=== PATIENT | female | born 1960 | race Caucasian/White ===

== ENCOUNTER 2017-02-14 12:39 | Outpatient (CLI) | payer OTHER ==
--- NOTE | 2017-02-14 15:21 | MRI Report ---
EXAM: RIGHT KNEE MRI WITHOUT CONTRAST EXAM DATE: 02/14/2017 01:53 PM. CLINICAL HISTORY: Right knee pain. COMPARISON: None. TECHNIQUE: Multiplanar, multisequence T1-weighted and fluid-sensitive sequences of the knee without c ontrast. Other: None. FINDINGS: Bones: Mild tibiofemoral osteophytes are present. No fractures. Articular Cartilage: The articular cartilage demonstrates moderate surface irregularity and thinning. The same findings are seen in the medial trochlea. There are areas of full-thickness fissuring of th e lateral tibial plateau. The medial compartment articular cartilage is mildly thinned. Medial Meniscus: The medial meniscus is intact. Lateral Meniscus: The posterior horn of the lateral meniscus has a parrot-beak tear near the root (se niharika 601, images 18 through 21). Cruciate Ligaments: The anterior and posterior cruciate ligaments are intact. Collateral Ligaments: The medial collateral and lateral collateral ligamentous structures are intact. Tendons: The quadriceps, patellar, semimembranosus, and popliteus tendons are unremarkable. Musculature: No edema or fatty atrophy. Other: No effusion. No popliteal cyst. No loose bodies. The medial and lateral retinacula are intact . The subcutaneous tissues and fat pads are unremarkable. IMPRESSION: 1. Mild osteoarthritis. 2. Tear of the posterior horn of the lateral meniscus. [facility] MUSCULOSKELET[facility] RADIOLOGY SECTION Referring Provider Line: [phone] SITE ID: [id number]
== END 2017-02-14 12:40 | disposition home or self-care (01) ==
LOC: DI 12:39
PROVIDERS: ATTEND Nurse Practitioner Family
DX: M17.11 Unilateral primary osteoarthritis, right knee (principal); S83.281A Other tear of lateral meniscus, current injury, right knee, initial encounter

== ENCOUNTER 2017-09-09 09:41 | Outpatient (CLI) | payer OTHER ==
[2017-09-09 10:24] LABS: BILIRUBIN,URINE NEGATIVE (NEGATIVE)
[2017-09-09 10:25] LABS: UA w/ MICROSCOPIC CHARGE YES
[2017-09-09 10:47] LABS: UR CULTURE IF IND INDICATED; WBC,URINE 0-3 /HPF (0-5)
== END 2017-09-09 09:42 | disposition home or self-care (01) ==
LOC: LAB 09:41
PROVIDERS: ATTEND Surgery
DX: M54.9 Dorsalgia, unspecified (principal)
CPT/HCPCS: 81001; 81003; 87086

== ENCOUNTER 2018-02-01 09:42 | Emergency (ER) | payer OTHER ==
[2018-02-01 09:55] VITALS: BP 154/78
--- NOTE | 2018-02-01 11:20 | ED Physician Documentation ---
PD HPI GI BLEED - Stated complaint Stated Complaint: FEMALE - Chief complaint Chief Complaint: General - History obtained from History obtained from: Patient, Family - History of Present Illness Timing - onset: Today Timing - duration: Hours Timing - details: Abrupt onset, Still present Associated symptoms: BRBPR. No: Dizzy, Near syncope / syncope Contributing factors: No: Recent antibiotics, Alcohol use, Diabetes Similar symptoms before: Has not had sx before Recently seen: Clinic - Additional information Additional information: 57-year-old female who has been through menopause at age 52 has not had menstrual bleeding for several years. This morning she found that she had blood on the tissue paper after having a bowel movement and then subsequently went back into the bathroom and had just blood clots out. She felt that this came per rectum and she describes the clots is stringy and a small amount. She does have some soreness to her bottom but has had normal bowel movements daily. She describes having some general nausea for more than a year and she is in the process of having a workup done for that through the GI doctors at [facility]. She has an appointment for an upper endoscopy next week. Review of Systems Constitutional: denies: Fever Eyes: denies: Decreased vision Ears: denies: Ear pain Nose: denies: Congestion Respiratory: denies: Dyspnea, Cough GI: reports: Abdominal Pain, Nausea, Bloody / black stool. denies: Vomiting, Constipation, Diarrhea : denies: Dysuria, Frequency PD PAST MEDICAL HISTORY - Past Medical History Past Medical History: Yes Cardiovascular: None Respiratory: None Endocrine/Autoimmune: None GI: GERD, Hiatal hernia : Other HEENT: Other Psych: None Musculoskeletal: Other Derm: None - Past Surgical History Past Surgical History: Yes General: Cholecystectomy, Colonoscopy, EGD /[facility]: Tubal ligation, Breast reduction HEENT: Other - Present Medications Home Medications: Ambulatory Orders Medication Instructions Recorded Confirmed Sucralfate 40 mg PO BID 06/28/15 06/28/15 Albuterol Sulfate [Proventil Hfa 1 - 2 puffs IH Q4H PRN #1 11/24/15 Inhaler] hfa.aer.ad Estradiol [Estrace] 11/24/15 Pantoprazole [Protonix] 80 mg PO BID 11/24/15 11/24/15 guaiFENesin/CODEINE [Robitussin AC] 5 - 10 ml PO Q6H PRN #120 ml 11/24/15 - Allergies Allergies/Adverse Reactions: Allergies Allergy/AdvReac Type Severity Reaction Status Date / Time No Known Drug Allergies Allergy Verified 03/11/13 00:17 - Social History Does the pt smoke?: No Smoking Status: Never smoker Does the pt drink ETOH?: Yes Does the pt have substance abuse?: No - Immunizations Immunizations are current?: Yes - POLST Patient has POLST: No PD ED PE NORMAL - Vitals Vital signs reviewed: Yes (hypertensive) - General General: Alert and oriented X 3, No acute distress, Well developed/nourished - HEENT HEENT: Atraumatic, PERRL, EOMI - Respiratory Respiratory: No respiratory distress - Rectal Rectal: Other (head of strategy Una no external hemmorrhoids or inflamation. Blood is present in the vaginal area. The digital exam is without obvious internal hemmorhoid and the stool is brown and guiac negative. ) - Derm Derm: Normal color, Warm and dry, No rash - Extremities Extremities: No deformity, No edema - Neuro Neuro: No motor deficit, No sensory deficit Eye Opening: Spontaneous Motor: Obeys Commands Verbal: Oriented GCS Score: 15 - Psych Psych: Normal mood, Normal affect Results - Vitals Vitals: Vital Signs - 24 hr 02/01/18 09:48 Temperature 35.9 C L Heart Rate 78 Respiratory 16 Rate Blood Pressure 154/78 H O2 Saturation 100 Oxygen O2 Source Room air PD MEDICAL DECISION MAKING - ED course Complexity details: reviewed old records, considered differential, d/w patient ED course: 57-year-old postmenopausal woman appears to have vaginal bleeding and not rectal bleeding. She is instructed to follow-up with her [facility] doctor regarding postmenopausal bleeding. Departure - Departure Disposition: 01 Home, Self Care Clinical Impression: Post-menopausal bleeding Condition: Stable Instructions: ED Bleed Irregular Vaginal Follow-Up: NICK Villalta [Provider Group] Comments: The bleeding today appears to be coming from the vaginal area. This is postmenopausal bleeding and follow-up with your [facility] doctor is imperative.
== END 2018-02-01 11:29 | disposition home or self-care (01) ==
LOC: ED 09:42
DX: N95.0 Postmenopausal bleeding (principal)
CPT/HCPCS: 99282; 99283

== ENCOUNTER 2018-11-11 12:58 | Emergency (ER) | payer OTHER ==
[2018-11-11 13:03] VITALS: BP 141/90
--- NOTE | 2018-11-11 13:56 | ED Physician Documentation ---
History of Present Illness - Stated complaint Stated Complaint: FLU LIKE SX - Chief complaint Chief Complaint: General - History obtained from History obtained from: Patient - History of Present Illness Timing: Other (She has been sick for 7 days with green nasal drainage, sinus pressure and congestion, productive cough, body aches, and bilateral ear pain especially while flying. She had a flu shot last year. 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 HEENT: Other - Present Medications Home Medications: Ambulatory Orders Medication Instructions Recorded Confirmed Albuterol Sulf [Ventolin Hfa 1 - 2 puffs INH Q4HR PRN #1 inhaler 11/11/18 Inhaler] Amox/Clav 875/125 [Augmentin] 1 each PO Q12H #20 tablet 11/11/18 Benzonatate [Tessalon Perle] 100 - 200 mg PO TID PRN #30 capsule 11/11/18 Hydrocodone/Acetaminophen 1 - 2 each PO Q6H PRN #14 tablet 11/11/18 [Hydrocodon-Acetaminophen 5-325] Mupirocin 1 gm TP TID #2 oin.pf.halle 11/11/18 - Allergies Allergies/Adverse Reactions: Allergies Allergy/AdvReac Type Severity Reaction Status Date / Time No Known Drug Allergies Allergy Verified 11/11/18 13:03 - Social History Does the pt smoke?: No Smoking Status: Never smoker Does the pt drink ETOH?: Yes Does the pt have substance abuse?: No - Immunizations Immunizations are current?: Yes - POLST Patient has POLST: No PD ED PE NORMAL - Vitals Vital signs reviewed: Yes - General General: Alert and oriented X 3, No acute distress - HEENT HEENT: Other (Profuse green nasal drainage with bilateral maxillary sinus tenderness and perinasal impetigo bilaterally, TMs and oropharynx are normal.) - Neck Neck: Supple, no meningeal sign, No bony TTP - Cardiac Cardiac: RRR, No murmur - Respiratory Respiratory: No respiratory distress, Other (Mild diffuse rhonchi without wheezing or focal findings) - Abdomen Abdomen: Non tender - Derm Derm: No rash - Neuro Neuro: Alert and oriented X 3, Normal speech Results - Vitals Vitals: Vital Signs - 24 hr 11/11/18 13:01 Temperature 36.9 C Heart Rate 103 H Respiratory 18 Rate Blood Pressure 141/90 H O2 Saturation 100 Oxygen O2 Source Room air Departure - Departure Disposition: Home, Self Care Clinical Impression: Impetigo, Viral syndrome Sinusitis Qualifiers: Sinusitis location: maxillary Chronicity: acute Recurrence: non-recurrent Qualified Code(s): J01.00 - Acute maxillary sinusitis, unspecified Condition: Good Record reviewed to determine appropriate education?: Yes Instructions: ED Sinusitis Abx Tx Prescriptions: Albuterol Sulf [Ventolin Hfa Inhaler] 1 - 2 puffs INH Q4HR PRN #1 inhaler PRN Reason: Shortness Of Air/Wheezing Amox/Clav 875/125 [Augmentin] 1 each PO Q12H #20 tablet Benzonatate [Tessalon Perle] 100 - 200 mg PO TID PRN #30 capsule PRN Reason: Cough Hydrocodone/Acetaminophen [Hydrocodon-Acetaminophen 5-325] 1 - 2 each PO Q6H PRN #14 tablet PRN Reason: pain Mupirocin 1 gm TP TID #2 oin.pf.halle Comments: Recheck with your doctor early next week if not better. Return for new or worsening symptoms. Your blood pressure was elevated today on check into the emergency department. This does not mean that you have hypertension, it is a common phenomenon to come to the emergency department and have elevated blood pressure. I recommend that you see your primary care physician within the week to have it rechecked when you are feeling better. Forms: Activity restrictions
== END 2018-11-11 14:21 | disposition home or self-care (01) ==
LOC: ED 12:58
DX: B34.9 Viral infection, unspecified (principal); L01.00 Impetigo, unspecified; J01.00 Acute maxillary sinusitis, unspecified; R03.0 Elevated blood-pressure reading, without diagnosis of hypertension
CPT/HCPCS: 99283

== ENCOUNTER 2019-05-14 08:32 | Outpatient (CLI) | payer OTHER | END 2019-05-14 08:33 | disposition home or self-care (01) | LOC: DI 08:32 | PROVIDERS: ATTEND Physician Assistant | DX: R06.00 Dyspnea, unspecified (principal); I20.9 Angina pectoris, unspecified; R01.1 Cardiac murmur, unspecified; I07.1 Rheumatic tricuspid insufficiency | CPT/HCPCS: 93306 ==

== ENCOUNTER 2019-06-21 14:16 | Outpatient (CLI) | payer OTHER ==
[2019-06-22 16:50] VITALS: BP 141/87
--- NOTE | 2019-06-22 16:50 | SLEEP CARE CONSULTATION ---
Information from patient questionnaire entered by Maura Patel. I have reviewed and concur with the information entered by Maura Patel. This document represents the service I personally performed and the decisions made by me, Se Irby MD, [facility]. History of Present Illness Reason for Visit: New patient, Previously diagnosed sleep apnea, sleep apnea on CPAP therapy Chief Complaint: reports: Other (needs supplies) Usual bedtime: [id number] Time it takes to fall asleep: 30-45 minutes Snores at night: Yes Observed to quit breathing while asleep: Yes Sleeps alone due to snoring: No Number of times waking at night: 2-3 Reasons for waking at night: reports: Bathroom, Other (dry mouth) Toss, Turn, or Twitch while sleeping: Yes Recalls having dreams: Yes Usually gets out of bed at: 0500 Feels refreshed in the morning: Yes (sometimes) Morning headache: Yes Sleepy or fatigued during the day: Yes Ever fallen asleep while driving: No Takes day naps: Yes Dreams during day naps: No Prior sleep studies: Yes Year and Where: 2015 [facility] in [place] Additional HPI information: I had the pleasure of seeing Ms. Lion today regarding obstructive sleep apnea- hypopnea. As you know, she is a 58 year old lady who was diagnosed with the sleep-disordered breathing at [facility] in 2016. She recalls the sleep- disordered breathing to be severe. The report is not available. She was prescribed a CPAP device set at 8 cmH2O. She uses every night and all night. The compliance data show usage in 178 out of the past 180 nights, averaging 7.9 hours a night. The residual AHI is 1.7 and average air leak is 19 seconds. She wears a Respironics Wisp nasal mask. Her machine came from [facility] but she was transferred to [facility] who would not give her supplies because she was noncompliant. She finds the treatment beneficial. CPAP Compliance Data - Data Reviewed with Patient Average duration of nightly device use: 8h 1m Compliance rate %: 96.7 Current pressure setting (cmH2O): 8 Humidity settin Heated hose settin Subjective Initial [place] Sleepiness Scale score: 14 Past Medical History Past Medical History: reports: Claustrophobia, Arthritis, Anemia, Anxiety, Asthma, Depression, GERD Social History The patient's occupation is a [employer]. Patient is and lives in [place]. Have you smoked in the past 12 months: No Alcohol use: Yes Caffeine use: No Family History Family history of sleep disordered breathing: Yes Family Hx Sleep Apnea: Sibling: Snoring Allergies and Home Medications Drug allergies reviewed: Yes Home medication list reviewed: Yes Review of Systems Cardiovascular: reports: irregular heart rate or pulse, leg or foot swelling Respiratory: reports: chronic cough Gastrointestinal: reports: heartburn, nausea Neurological: reports: headaches Psychiatric: reports: anxiety, claustrophobia Ear/Nose/Throat: reports: dry mouth/throat, hoarseness, wisdom teeth removed Endocrine: reports: sluggishness, too hot or cold, excessive thirst Musculoskeletal: reports: joint pain, neck pain, back pain, muscle pain or cramping Immunologic: reports: sneezing, itching Physical Exam Vital signs obtained and entered by: Dr. Irby Blood Pressure: 141/87 Cuff size: regular Heart Rate: 62 O2 Saturation: 97 Neck circumference: 16.5 Mood/affect: normal HEENT: No craniofacial malformation Nostrils: patent to airflow Turbinates: normal Septum: midline Mouth and throat: narrow oropharynx Soft palate: long Hard palate: normal Uvula: normal Uvula visualization: 25% Mallampati Class III Tongue: normal in size Tonsils: small Chin and jaw: normal size and position Neck: normal w/o lymphadenopathy or thyromegaly Heart: regular rate and rhythm Lungs: clear bilaterally Abdomen: soft Extremities: 1+ edema Neurologic: intact Impression and Plan IMPRESSION: 1. Obstructive Sleep Apnea-Hypopnea Syndrome, as previously diagnosed. The severity is unknown as we do not have any of the records. The patient has had good treatment compliance. The current pressure setting appears effective and comfortable. The patient experiences improvement on the treatment. Narrow oropharynx and obesity are common predisposing factors for obstructive sleep apnea-hypopnea syndrome. Pathophysiology of sleep-disordered breathing was discussed. I will order her CPAP from [facility]. Plan: 1. Prescription made for CPAP supplies. 2. Obtain sleep study report to complete the prescription. 3. Try to lose weight. 4. Return for follow up in a year or earlier if there is any problem. I spent 100% of this 15 minute visit face to face with the patient with greater than 50% of this was spent time counseling the patient and coordination of care.
== END 2019-06-21 14:17 | disposition home or self-care (01) ==
LOC: SC 14:16
PROVIDERS: ATTEND Internal Medicine Pulmonary Disease
DX: G47.33 Obstructive sleep apnea (adult) (pediatric) (principal)
CPT/HCPCS: 99203; 99212

== ENCOUNTER 2019-09-02 08:40 | Outpatient (CLI) | payer OTHER ==
--- NOTE | 2019-09-03 09:56 | Nuclear Medicine Report ---
Reason: EPIGASTRIC PAIN Procedure Date: 09/02/2019 Accession Number: [id number] / [id number] Procedure: NM - Gastric Empty Small Bowel CPT Code: Final Report FULL RESULT: EXAM: GASTRIC EMPTYING STUDY EXAM DATE: 09/02/2019 01:45 PM. CLINICAL HISTORY: EPIGASTRIC PAIN. Frequent eructation. COMPARISON: None. TECHNIQUE: A standard meal was radiolabeled with 1 mCi Tc-99m sulfur colloid according to protocol. Following the oral administration of this meal, the patient underwent multiple static images over the abdomen from the anterior and posterior projections, at approximately 0, 1, 2, 3, 4 hours following the ingestion of the meal. Region of interest analysis was employed, and percent emptied/percent remaining of the meal was calculated using both the geometric mean and decay corrections. FINDINGS: Calculations demonstrate: TIME (hours) Percent remaining. Normal values for percent remaining. 1 hour: 9% (30-90%) 2 hours: <1% (0-60%) 3 hours: <1% (0-30%) 4 hours: <1% (0-10%) IMPRESSION: Findings suggest abnormally rapid gastric emptying. [facility]
== END 2019-09-02 08:41 | disposition home or self-care (01) ==
LOC: DI 08:40
PROVIDERS: ATTEND Physician Assistant
DX: R10.13 Epigastric pain (principal)
CPT/HCPCS: 78265

== ENCOUNTER 2019-09-20 02:57 | Emergency (ER) | payer OTHER ==
--- NOTE | 2019-09-20 03:01 | ED Physician Documentation ---
PD HPI NVD - Stated complaint Stated Complaint: N/V LOWER BACK PX - Chief complaint Chief Complaint: Back Pain - History obtained from History obtained from: Patient - History of Present Illness Timing - onset: How many days ago (2) Timing - duration: Days (2 days of some right flank pain, but then onset nausea and vomiting just the past several hours.) Timing - details: Gradual onset, Still present Associated symptoms: Abdominal pain (right lower abd to right flank). No: Fever, Near syncope / syncope, Loss of appetite, Dysuria, Hematuria Contributing factors: Sick contact (Daughter with flu-like nausea and vomiting recent, but not with abd pain.) Improved by: No: Vomiting Worsened by: Moving, Position. No: Breathing Similar symptoms before: Has not had sx before Recently seen: Not recently seen Review of Systems Constitutional: denies: Fever, Chills, Myalgias Nose: denies: Rhinorrhea / runny nose, Congestion Throat: denies: Sore throat Respiratory: denies: Cough GI: reports: Abdominal Pain, Nausea, Vomiting. 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: Tubal ligation, Breast reduction HEENT: Other - Present Medications Home Medications: Ambulatory Orders Medication Instructions Recorded Confirmed Hydrocodone/Acetaminophen [[place] 1 each PO Q6H PRN #15 tablet 09/20/19 5-325 Tablet] Multivitamin [Multivitamins] 1 cap PO DAILY 09/20/19 09/20/19 Ondansetron Odt [Zofran] 4 mg TL Q6H PRN #10 tablet 09/20/19 Promethazine Supp [Phenergan Supp] 25 mg W[place] Q6H PRN #5 supp 09/20/19 - Allergies Allergies/Adverse Reactions: Allergies Allergy/AdvReac Type Severity Reaction Status Date / Time Latex, Natural Rubber Allergy Rash Verified 09/20/19 03:03 - Social History Does the pt smoke?: No Smoking Status: Never smoker Does the pt drink ETOH?: Yes Does the pt have substance abuse?: No - Immunizations Immunizations are current?: No Immunizations: TDAP >10years/unknown - POLST Patient has POLST: No PD ED PE NORMAL - Vitals Vital signs reviewed: Yes - General General: Alert and oriented X 3, Well developed/nourished - HEENT HEENT: Pharynx benign. No: Moist mucous membranes - Neck Neck: Supple, no meningeal sign - Cardiac Cardiac: RRR, No murmur - Respiratory Respiratory: Clear bilaterally - Abdomen Abdomen: Normal bowel sounds, Soft, Non distended, No organomegaly, Other (tender lower right abd without percussion tenderness. Some right flank tenderness. ) - Back Back: No spinal TTP, Other (some right CVA tenderness. ) - Derm Derm: Normal color, Warm and dry - Neuro Neuro: Alert and oriented X 3, No motor deficit, Normal speech Results - Vitals Vitals: Vital Signs - 24 hr 09/20/19 09/20/19 09/20/19 03:00 04:10 04:34 Temperature 36.2 C L Heart Rate 81 67 68 Respiratory 18 16 14 Rate Blood Pressure 145/79 H 137/78 H 132/67 H O2 Saturation 95 98 88 L 09/20/19 09/20/19 09/20/19 04:38 05:05 05:21 Temperature Heart Rate 73 71 Respiratory 18 14 Rate Blood Pressure 107/87 H 122/60 O2 Saturation 98 97 98 09/20/19 09/20/19 06:07 06:35 Temperature 36.4 C L 36.2 C L Heart Rate 80 66 Respiratory 18 16 Rate Blood Pressure 125/61 125/61 O2 Saturation 97 97 Oxygen O2 Source Room air Oxygen Flow Rate 2 - Labs Labs: Laboratory Tests 09/20/19 09/20/19 09/20/19 03:14 03:45 03:45 WBC 11.1 H RBC 5.21 Hgb 13.9 Hct 42.2 MCV 81.0 MCH 26.7 L MCHC 32.9 RDW 12.9 Plt Count 312 MPV 9.2 Neut # (Auto) 9.5 H Lymph # (Auto) 0.7 L [place] # (Auto) 0.7 Eos # (Auto) 0.2 Baso # (Auto) 0.0 Absolute Nucleated RBC 0.00 Nucleated RBC % 0.0 Sodium 137 Potassium 4.2 Chloride 105 Carbon Dioxide 24 Anion Gap 8.0 BUN 19 Creatinine 0.7 Estimated GFR (MDRD) 86 L Glucose 116 H Calcium 8.4 L Total Bilirubin 0.7 AST 17 ALT 19 Alkaline Phosphatase 65 Total Protein 7.3 Albumin 3.6 Globulin 3.7 Albumin/Globulin Ratio 1.0 Lipase 37 Urine Color YELLOW Urine Clarity CLEAR Urine pH 6.0 Ur Specific [place] >=1.030 H Urine Protein 30 H Urine Glucose (UA) NEGATIVE Urine Ketones NEGATIVE Urine Occult Blood NEGATIVE Urine Nitrite NEGATIVE Urine Bilirubin NEGATIVE Urine Urobilinogen 0.2 (NORMAL) Ur Leukocyte Esterase SMALL H Urine RBC None Seen Urine WBC 4-5 Ur Squamous Epith Cells MOD Squamous H Amorphous Sediment Few Urine Bacteria Few Ur Microscopic Review INDICATED Urine Culture Comments NOT INDICATED - Rads (name of study) abd/pelvic CT without contrast Radiology: Prelim report reviewed (Normal appendix. No ureteral stones and normal-appearing kidney. Status post cholecystectomy. No acute intra-abdominal findings. Incidental small lingular nodule in the lung field with recommendation for repeat CT scan in several months. Patient is given a copy of the CT report.), See rad report PD MEDICAL DECISION MAKING - ED course Complexity details: reviewed results (No acute process seen on the CT scan nor the urine. This may be viral gastroenteritis. She has had IBS in the past and so could be having symptoms related to that.), re-evaluated patient (Had rather intractable nausea. Her pain was improved with IV medicines of Toradol and Dilaudid. However took several different antiemetics for the nausea to improve to where she was not vomiting and was able to take some ice chips. We discussed further time in the ER versus observation or heading home. At this point she opted for heading home with prescription meds.), considered differential (Consider UTI or kidney infection or kidney stone. Also consider appendicitis. Will get urine and CT scan.), d/w patient Departure - Departure Disposition: 01 Home, Self Care Clinical Impression: Right sided abdominal pain Nausea and vomiting Qualifiers: Vomiting type: unspecified Vomiting Intractability: intractable Qualified Code(s): R11.2 - Nausea with vomiting, unspecified Condition: Stable Record reviewed to determine appropriate education?: Yes Instructions: ED Abdominal Pain Unkn Cause, ED Nausea Vomiting Prescriptions: Hydrocodone/Acetaminophen [[place] 5-325 Tablet] 1 each PO Q6H PRN #15 tablet PRN Reason: Pain Ondansetron Odt [Zofran] 4 mg TL Q6H PRN #10 tablet PRN Reason: Nausea / Vomiting Promethazine Supp [Phenergan Supp] 25 mg W[place] Q6H PRN #5 supp PRN Reason: Nausea / Vomiting Comments: Small frequent fluids for hydration. [place] food initially and progress diet as able. Your urine did not show signs of infection. The CT scan did not show any obvious cause for the pain. There are no signs of kidney stones nor appendicitis nor other acute process. Presume therefore this may be a viral type illness or some irritable bowel. Ondansetron if needed for nausea. Promethazine suppository if still vomiting despite that. Use Tylenol or hydrocodone as needed for pain. If using this, also take a mild stool softener such as docusate to ensure it does not constipate you. Recheck if not improved well over the next 1 to 2 days. Return if worsening or worse despite medications. Discharge Date/Time: 09/20/19 06:36
[2019-09-20 03:18] LABS: BILIRUBIN,URINE NEGATIVE (NEGATIVE); GLUCOSE, URINE (UA) NEGATIVE (NEGATIVE); KETONES,URINE (UA) NEGATIVE (NEGATIVE); LEUKOCYTE ESTERASE, URINE SMALL (NEGATIVE); NITRITE,URINE NEGATIVE (NEGATIVE); OCCULT BLOOD,URINE NEGATIVE (NEGATIVE); PROTEIN,URINE 30 mg/dL (NEGATIVE); UROBILINOGEN,URINE 0.2 (NORMAL) E.U./dL (NORMAL)
[2019-09-20 03:31] LABS: AMORPHOUS SEDIMENT,UR Few /LPF; BACTERIA,URINE Few /HPF (None Seen); CLARITY,URINE CLEAR (CLEAR); RBC,URINE None Seen /HPF (0-5); SQUAMOUS EPITHELIAL CELL,UR MOD Squamous (<= Few)
[2019-09-20] MEDS ORDERED: HYDROmorphone 2 MG/ML VIAL IVP STA (03:34)
[2019-09-20] MEDS ORDERED: KETOROLAC 30 MG/ML VIAL IVP STA (03:34)
[2019-09-20] MEDS ORDERED: SODIUM CHLORIDE 0.9% 1,000 ML IV ONE (03:34)
[2019-09-20] MEDS ORDERED: ONDANSETRON 4 MG/2 ML VIAL IVP STA ×2 (03:34→06:10)
[2019-09-20 03:52] LABS: BASOPHILS % (AUTO) 0.3 %; EOSINOPHILS # (AUTO) 0.2 10^3/uL (0.0-0.7); EOSINOPHILS % (AUTO) 1.6 %; HGB - HEMOGLOBIN 13.9 g/dL (12.0-16.0); LYMPHOCYTES # (AUTO) 0.7 10^3/uL (1.5-3.5); LYMPHOCYTES % (AUTO) 6.1 %; MEAN CORPUSCULAR HEMOGLOBIN 26.7 pg (27.0-31.0); MEAN CORPUSCULAR HGB CONC 32.9 g/dL (32.0-36.0); MEAN PLATELET VOLUME 9.2 fL (7.9-10.8); MONOCYTES # (AUTO) 0.7 10^3/uL (0.0-1.0); MONOCYTES % (AUTO) 6.3 %; NEUTROPHILS # (AUTO) 9.5 10^3/uL (1.5-6.6); NEUTROPHILS % (AUTO) 85.2 %; PLT - PLATELET COUNT 312 10^3/uL (130-450); RED BLOOD COUNT 5.21 10^6/uL (4.20-5.40); RED CELL DISTRIBUTION WIDTH 12.9 % (12.0-15.0); WHITE BLOOD COUNT 11.1 x10^3/uL (4.8-10.8)
[2019-09-20 04:03] LABS: ALBUMIN 3.6 g/dL (3.2-5.5); BILIRUBIN,TOTAL 0.7 mg/dL (0.2-1.0); CALCIUM 8.4 mg/dL (8.5-10.3); CREATININE 0.7 mg/dL (0.4-1.0); TOTAL PROTEIN 7.3 g/dL (6.7-8.2)
[2019-09-20] MEDS ORDERED: HYDROmorphone 1 MG/ML CARPUJECT IVP STA (04:18)
[2019-09-20] MEDS ORDERED: ACETAMINOPHEN 1,000 MG/100 ML 100 ML IV STA (04:18)
[2019-09-20] MEDS ORDERED: PROCHLORPERAZINE 10 MG/2 ML VIAL IVP STA (04:18)
--- NOTE | 2019-09-20 04:33 | CT Report ---
Reason: right abd/flank pain Procedure Date: 09/20/2019 Accession Number: [id number] / [id number] Procedure: CT - Abdomen/Pelvis WO CPT Code: Final Report FULL RESULT: EXAM: CT ABDOMEN AND PELVIS (CT KUB) EXAM DATE: 09/20/2019 04:13 AM CLINICAL HISTORY: Right-sided abdominal and flank pain. Nausea and vomiting since last night. Flank pain for 2 days. COMPARISONS: ABDOMEN/PELVIS W/ 09/30/2015 10:44 PM. TECHNIQUE: Routine axial helical CT imaging was performed through the abdomen and pelvis without IV contrast. Reconstructions: Coronal and sagittal. In accordance with CT protocol optimization, one or more of the following dose reduction techniques were utilized for this exam: automated exposure control, adjustment of mA and/or KV based on patient size, or use of iterative reconstructive technique. FINDINGS: Right Kidney/Ureter: No stones. No hydronephrosis or hydroureter. No definite renal mass within the confines of a non-contrast exam. Left Kidney/Ureter: No stones. No hydronephrosis or hydroureter. No definite renal mass within the confines of a non-contrast exam. Abdominal Solid Organs: Prior cholecystectomy. Abdominal parenchymal organs are without significant abnormality within the confines of a noncontrast exam. Bowel: No evidence of bowel obstruction. Appendix: Normal. Lymph Nodes: No definite pathologic lymphadenopathy. Fluid: No significant ascites. Vasculature: Normal caliber aorta. Other: There is a tiny fat-containing umbilical hernia. Pelvis: No bladder stones. Visualized pelvic organs are without significant abnormality within the confines of a noncontrast exam. Bones: No definite suspicious bony lesions demonstrated. Multilevel degenerative change in the spine. There is moderate to severe multifactorial central canal stenosis at L4-L5. Lower Chest: There is a small inferior lingular opacity. There is a tiny 3 mm posteromedial right lower lobe nodule (image 24 series 3), stable from the prior study. No significant lung base consolidation or effusion. IMPRESSION: 1. No urinary tract stones or obstruction. 2. Appendix is normal. No bowel obstruction. 3. Prior cholecystectomy. 4. There is a new small nodular inferior lingular opacity. This is nonspecific. Follow-up noncontrast chest CT recommended in 1 month. RADIA
[2019-09-20] MEDS ORDERED: HALOPERIDOL 5 MG/ML VIAL IVP ONE (05:05)
[2019-09-20] MEDS ORDERED: ONDANSETRON ODT 4 MG Prepack 2 TL PRN (06:10)
[2019-09-20 06:12] VITALS: BP 125/61
== END 2019-09-20 06:36 | disposition home or self-care (01) ==
LOC: ED 02:57
DX: R10.31 Right lower quadrant pain (principal); R11.2 Nausea with vomiting, unspecified; K58.9 Irritable bowel syndrome, unspecified; R91.1 Solitary pulmonary nodule; Z90.49 Acquired absence of other specified parts of digestive tract
CPT/HCPCS: 36415; 74176; 80053; 81001; 83690; 85025; 96361; 96374; 96375; 96376; 99284; 99285; J0131; J1170; 81003; 87086

== ENCOUNTER 2020-05-24 08:57 | Outpatient (CLI) | payer OTHER ==
[2020-05-24 09:10] LABS: HGB - HEMOGLOBIN 13.1 g/dL (12.0-16.0); MEAN CORPUSCULAR HEMOGLOBIN 27.4 pg (27.0-31.0); MEAN CORPUSCULAR HGB CONC 33.3 g/dL (32.0-36.0); MEAN CORPUSCULAR VOLUME 82.2 fL (81.0-99.0); MEAN PLATELET VOLUME 8.8 fL (7.9-10.8); RED BLOOD COUNT 4.78 10^6/uL (4.20-5.40); RED CELL DISTRIBUTION WIDTH 12.8 % (12.0-15.0); WHITE BLOOD COUNT 7.4 x10^3/uL (4.8-10.8)
[2020-05-24 09:32] LABS: % IRON SATURATION 19 % (20-50); ALBUMIN 4.2 g/dL (3.2-5.5); ALBUMIN/GLOBULIN RATIO 1.1 (1.0-2.2); ALKALINE PHOSPHATASE 72 IU/L (42-121); ALT ALANINE AMINOTRANSFERASE 21 IU/L (10-60); AST ASPARTATE AMINOTRANSFERASE 19 IU/L (10-42); BILIRUBIN,TOTAL 0.6 mg/dL (0.2-1.0); BUN - BLOOD UREA NITROGEN 11 mg/dL (6-20); CALCIUM 8.9 mg/dL (8.5-10.3); CARBON DIOXIDE - CO2 28 mmol/L (21-32); CHLORIDE 104 mmol/L (101-111); CHOL/HDL RATIO 4.8 (<4.4); CHOLESTEROL 251 mg/dL; CREATININE 0.9 mg/dL (0.4-1.0); GLUCOSE 112 mg/dL (70-100); HDL CHOLESTEROL 52 mg/dL; IRON 65 ug/dL (28-170); LDL CHOLESTEROL,CALCULATED 170 mg/dL; LDL/HDL RATIO 3.3 (<4.4); SODIUM 138 mmol/L (135-145); TOTAL IRON BINDING CAPACITY 349 ug/dL (250-450); TRANSFERRIN 249 mg/dL (192-382); VLDL CHOLESTEROL 29 mg/dL
[2020-05-24 09:46] LABS: FERRITIN 95.2 ng/mL (11.0-306.8)
[2020-05-24 11:14] LABS: HEMOGLOBIN A1c% 6.3 % (4.27-6.07)
== END 2020-05-24 08:58 | disposition home or self-care (01) ==
LOC: LAB 08:57
PROVIDERS: ATTEND Obstetrics & Gynecology
DX: R53.83 Other fatigue (principal); R53.81 Other malaise; Z71.89 Other specified counseling; Z68.36 Body mass index [BMI] 36.0-36.9, adult; Z13.1 Encounter for screening for diabetes mellitus; Z13.21 Encounter for screening for nutritional disorder; Z13.220 Encounter for screening for lipoid disorders; Z86.2 Personal history of diseases of the blood and blood-forming organs and certain disorders involving the immune mechanism
CPT/HCPCS: 36415; 80053; 80061; 82306; 82728; 83036; 83540; 83721; 84443; 84466; 85027

== ENCOUNTER 2020-05-31 08:16 | Outpatient (CLI) | payer OTHER | END 2020-05-31 08:17 | disposition home or self-care (01) | LOC: LAB 08:16 | PROVIDERS: ATTEND Obstetrics & Gynecology | DX: Z13.1 Encounter for screening for diabetes mellitus (principal) | CPT/HCPCS: 36415; 82951 ==

== ENCOUNTER 2020-07-24 16:21 | Outpatient (CLI) | payer OTHER ==
--- NOTE | 2020-07-24 16:48 | SLEEP CARE CONSULTATION ---
Information from patient questionnaire entered by Grecia Cotto. I have reviewed and concur with the information entered by Grecia Cotto. This document represents the service I personally performed and the decisions made by me, Jaqueline Camacho ARNP. History of Present Illness Service Date and Time: 07/24/2020 1621 Previous diagnosis: Moderate, Obstructive Sleep Apnea-Hypopnea Syndrome AHI: 25.4 Reason for follow up: annual (Last seen 05/2019) Equipment type: CPAP Equipment obtained from: [employer] (getting supplies as needed) Mask style: Nasal Backup mask available: Yes (other mask) Last cushion change: 4 weeks Prior sleep studies: Yes Year and Where: 2015 [place] in [facility] additional information: JULIET LAGUNAS was diagnosed to have moderate, AHI 25.4, obstructive sleep apnea- hypopnea syndrome and returned today for CPAP therapy annual follow-up. Sleep Study - Results Prior sleep studies: Yes Year and Where: 2015 [place] in [place] CPAP Compliance Data - Data Reviewed with Patient Average duration of nightly device use: 8 hours 10 mins Compliance rate %: 95 Current pressure setting (cmH2O): 8 Humidity settin Heated hose settin Average residual AHI: 1.8 Average large leak: 1 minute 41 seconds Subjective Patient concerns: reports: air blowing in eyes (adjusts as needed, using night mask over eyes, using eye drops; both are helping), nasal congestion (sometimes, usually uses a nasal spray and is better rest of day), dry mouth, nose, throat (dry mouth). denies: aerophagia, mask discomfort, mask leak noise, condensation in mask/hose, epistaxis, other Observed to snore while using device: No Current pressure setting perceived as: comfortable On therapy, patient: reports: sleeping better, awakening more refreshed, being more awake and alert during the day, more rested overall. denies: drowsiness while driving Initial [place] Sleepiness Scale score: 14 ([place] 2019) Current [place] Sleepiness Scale score: 11 Allergies and Home Medications Drug allergies reviewed: Yes (latex, natural rubber) Home medication list reviewed: Yes (phentermine and bupropion) Review of Systems Review of systems same as previous: Yes (no changes) Physical Exam Heart Rate: 87 O2 Saturation: 97 Height: 5 ft 9 in Weight: 281 lb Body Mass Index: 41.5 BMI Classification: Morbidly Obese Impression and Plan 1. Obstructive Sleep Apnea-Hypopnea Syndrome, moderate, with excellent treatment compliance and good apnea control. On CPAP therapy, the patient has better sleep quality and is more rested overall. She has been having issue with dry mouth. Oral dryness can be reduced by adjusting humidity setting higher or heated hose lower or by adjusting both settings. Patient advised that chronic oral dryness can affect dental health and advised to follow up with dentist. In addition, there are oral dryness products that can be used to reduce dryness such as Biotene products, Dry mouth rinse and Xylomelts. Patient to discuss best option with dentist. Patient's apnea severity and rationale for treatment to reduce apnea, improve sleep quality and reduce cardiovascular and cerebrovascular events was reviewed. I also reviewed the benefit of consistent device use of CPAP for gastric reflux, and depression/anxiety. * Continue autoCPAP pressure at 8 cmH2O * Notify me if snoring with mask or feeling that the pressure is too much or too little * Attempt to lose weight * Call this office if any problems using CPAP * Return for follow up in 1 year, or sooner if concerns arise Counseling Topics: Spare mask, Weight loss health impact Visit Type: In Office Time Spent with Patient (minutes): 15 Provider Statement: I spent 100% of the Face to Face Visit with the patient with greater than 50% spent counseling the patient and coordination of care.
== END 2020-07-24 16:22 | disposition home or self-care (01) ==
LOC: SC 16:21
PROVIDERS: ATTEND Nurse Practitioner Family
DX: G47.33 Obstructive sleep apnea (adult) (pediatric) (principal); E66.01 Morbid (severe) obesity due to excess calories; Z68.41 Body mass index [BMI] 40.0-44.9, adult
CPT/HCPCS: 99212

== ENCOUNTER 2020-12-07 12:34 | Outpatient (CLI) | payer OTHER ==
--- NOTE | 2020-12-08 08:53 | Mammography Report ---
BILATERAL DIGITAL SCREENING MAMMOGRAM: 12/07/2020 CLINICAL: Routine screening. Comparison is made to exams dated: 11/22/2019 mammogram - [facility] and 11/20/2018 ma mmogram - [facility]. Other comparison mammograms: 10/01/2017, 08/28/2016 and 5. There are scattered fibroglandular elements in both breasts. No significant masses, calcifications, or other findings are seen in either breast. There has been no significant interval change. IMPRESSION: NEGATIVE There is no mammographic evidence of malignancy. A 1 year screening mammogram is recommended. This exam was interpreted at Station ID: [id number]. NOTE: For mammograms, a report in lay terms will be sent to the patient. Approximately 15% of breast malignancies will not be visualized mammographically. In the management of a palpable breast mass, a negative mammogram must not discourage biopsy of a clinically suspicious lesion. Electronically Signed By: Vasquez Barnett M.D. aty/:12/07/2020 15:41:47 ACR BI-RADS Category 1: Negative 3341F PARENCHYMAL PATTERN: (A) - The breast(s) demonstrate(s) scattered fibroglandular densities. BI-RADS CATEGORY: (1) - 1 RECOMMENDATION: (ANNUAL) - Recommend routine annual screening mammography. [id number] 1 year screening LATERALITY: (B)
== END 2020-12-07 12:35 | disposition home or self-care (01) ==
LOC: DI.N 12:34
DX: Z12.31 Encounter for screening mammogram for malignant neoplasm of breast (principal)

== ENCOUNTER 2021-10-25 09:03 | Outpatient (CLI) | payer OTHER ==
--- NOTE | 2021-10-25 13:02 | XRAY Report ---
PROCEDURE: Hip BILAT, x-ray INDICATIONS: BILAT HIP PAIN TECHNIQUE: 2 views of each hip was obtained COMPARISON: None FINDINGS: Bones: No fractures or dislocations. No suspicious bony lesions. The visualized pelvic ring appear s intact. Mild bilateral acetabular joint space narrowing Soft tissues: No suspicious soft tissue calcifications or masses. IMPRESSION: Mild bilateral osteoarthritis. No fracture or lytic lesion Reviewed by: Terry Neal MD on 10/25/2021 12:00 PM [facility] Approved by: Terry Neal MD on 10/25/2021 12:00 PM [facility] Station ID: [id number]
== END 2021-10-25 09:04 | disposition home or self-care (01) ==
LOC: DI.WOS 09:03
PROVIDERS: ATTEND Orthopaedic Surgery
DX: M16.0 Bilateral primary osteoarthritis of hip (principal)

== ENCOUNTER 2021-11-09 11:50 | Outpatient (CLI) | payer OTHER ==
[~2021-11-09 11:50] MED LIST: IOTHALAMATE MEGLUMINE 50 ML VIAL ONE; ROPIVACAINE 0.5% PF 30 ML VIAL ONE; TRIAMCINOLONE 40 MG/ML VIAL ONE; lidocaine 1% 20 ML MDV ONE
[2021-11-09] MEDS ORDERED: ROPIVACAINE 0.5% PF 30 ML VIAL IU ONE (14:00)
[2021-11-09] MEDS ORDERED: IOTHALAMATE MEGLUMINE 50 ML VIAL IVP ONE (14:58)
[2021-11-09] MEDS ORDERED: lidocaine 1% 20 ML MDV SUBQ ONE (14:59)
[2021-11-09] MEDS ORDERED: TRIAMCINOLONE 40 MG/ML VIAL IM ONE (15:00)
--- NOTE | 2021-11-19 05:48 | XRAY Report ---
PROCEDURE: Inj/Aspiration Major Joint INDICATIONS: OSTEOARTHRITIS, HIP PAIN TECHNIQUE: PROCEDURE: Inj/Aspiration Major Joint INDICATIONS: OSTEOARTHRITIS, HIP PAIN CONTRAST: 5 mL FLUOROSCOPY DOSAGE: 96.9 mGy FLUORO TIME: 3 minutes TECHNIQUE: The indications, alternatives, benefits, risks, and complications of the procedure were explained to the patient. Written informed consent was obtained and placed in the chart. The patient was placed in an appropriate position on the fluoroscopy table, and a site was chosen for percutaneous access un disha fluoroscopic guidance. The site was prepped and draped in a sterile fashion. Local anesthetic w as administered using a 1% lidocaine solution. A hypodermic or spinal needle was then used to access the symptomatic joint. Intra-articular location of the needle tip was confirmed by injecting a smal l amount of contrast, followed by steroid administration. The needle was then withdrawn, and a del rosario ge applied to the puncture site. FINDINGS: Joint injected: Left hip Medications injected: 40 mg/mL Kenalog and 0.5% Ropivacaine mixture. Complications: None. IMPRESSION: Successful fluoroscopically guided administration of steroid and anaesthetic solution into the left h ip joint. COMPARISON: None. FINDINGS: Spot fluoroscopic view demonstrates contrast within the left hip joint. IMPRESSION: Successful intra-articular steroid injection into the left hip. Reviewed by: Hay Perales on 11/14/2021 8:52 AM [facility] Approved by: Hay Perales on 11/14/2021 8:52 AM PST Station ID: [id number]
== END 2021-11-09 11:51 | disposition home or self-care (01) ==
LOC: DI 11:50
PROVIDERS: ATTEND Orthopaedic Surgery
DX: M16.0 Bilateral primary osteoarthritis of hip (principal)
CPT/HCPCS: 20610; 77002; Q9961

== ENCOUNTER 2022-03-07 08:00 | Outpatient (CLI) | payer OTHER ==
--- NOTE | 2022-03-08 16:03 | XRAY Report ---
PROCEDURE: Lumbar Spine 2 View INDICATIONS: LOW BACK PAIN TECHNIQUE: 2 views of the lumbar spine were acquired. COMPARISON: None. FINDINGS: Bones: 5 ghd-lpu-lnqoste vertebrae are present. There is normal bony alignment. No vertebral body compression fractures. No suspicious bony lesions. There is moderate disc and foraminal narrowing a t L5-S1, mild at L4-5. Minimal nonbridging anterior osteophytes are present most notable at L3 and L4 . Soft tissues: Overlying bowel gas pattern is normal. No suspicious soft tissue calcifications. IMPRESSION: Degenerative changes most notable at L5-S1. Reviewed by: Sydnie Welch MD on 03/08/2022 4:02 PM PDT Approved by: Sydnie Welch MD on 03/08/2022 4:02 PM PDT Station ID: [id number]
== END 2022-03-07 23:59 | disposition home or self-care (01) ==
LOC: DI.N 08:00
PROVIDERS: ATTEND Family Medicine
DX: M47.816 Spondylosis without myelopathy or radiculopathy, lumbar region (principal); M48.061 Spinal stenosis, lumbar region without neurogenic claudication; M47.817 Spondylosis without myelopathy or radiculopathy, lumbosacral region; M48.07 Spinal stenosis, lumbosacral region

== ENCOUNTER 2022-04-02 08:00 | Outpatient (CLI) | payer OTHER ==
--- NOTE | 2022-04-02 16:34 | XRAY Report ---
PROCEDURE: Knee 3 View RT INDICATIONS: KNEE PX TECHNIQUE: 3 views of the right knee(s) were acquired. COMPARISON: None. FINDINGS: Mild to moderate right knee osteoarthritis with joint space narrowing and marginal osteophytosis, inv olving all three compartments. No suspicious lytic or blastic osseous lesion. No fracture or dislocat ion. Normal patellar position. No knee joint effusion. IMPRESSION: Mild to moderate tricompartmental osteoarthritis in the right knee. No acute finding. Reviewed by: Ethan Burciaga MD on 04/02/2022 4:33 PM PDT Approved by: Ethan Burciaga MD on 04/02/2022 4:33 PM PDT Station ID: [id number]
== END 2022-04-02 23:59 | disposition home or self-care (01) ==
LOC: DI.WOS 08:00
PROVIDERS: ATTEND Physician Assistant Medical
DX: M17.11 Unilateral primary osteoarthritis, right knee (principal)

== ENCOUNTER 2022-04-02 13:45 | Emergency (ER) | payer OTHER ==
--- NOTE | 2022-04-02 14:08 | ED Physician Documentation ---
PD HPI CHEST PAIN - Stated complaint Stated Complaint: HIGH BP - Chief complaint Chief Complaint: Cardiac - History obtained from History obtained from: Patient - Additional information Additional information: She is noticed her blood pressures been high for the last 3 weeks or so. Its been in the range of 180/100. She has some mild chest popping with it and some on and off headaches. She notes mild pedal edema. She does not have a personal history of hypertension previous to this and has never been treated for hypertension but it runs in her family. Review of Systems Constitutional: reports: Fatigue Cardiac: denies: Palpitations Respiratory: denies: Dyspnea, Cough GI: denies: Abdominal Pain, Abdominal Swelling PD PAST MEDICAL HISTORY - Past Medical History Cardiovascular: None Respiratory: None Neuro: None Endocrine/Autoimmune: None GI: GERD, Hiatal hernia GEOLOGY INSTRUCTOR: None : Other HEENT: None Psych: None Musculoskeletal: None, Other Derm: None - Past Surgical History Past Surgical History: Yes General: Cholecystectomy, Colonoscopy, EGD /GEOLOGY INSTRUCTOR: Tubal ligation, Breast reduction HEENT: Other - Present Medications Home Medications: Ambulatory Orders Medication Instructions Recorded Confirmed hydroCHLOROthiazide [Hydrodiuril] 25 mg PO DAILY #30 tablet 04/02/22 - Allergies Allergies/Adverse Reactions: Allergies Allergy/AdvReac Type Severity Reaction Status Date / Time Latex, Natural Rubber Allergy Rash Verified 04/02/22 13:55 - Social History Does the pt smoke?: No Smoking Status: Never smoker Does the pt drink ETOH?: Yes Does the pt have substance abuse?: No - Immunizations Immunizations are current?: No Immunizations: TDAP >10years/unknown - POLST Patient has POLST: No PD ED PE NORMAL - Vitals Vital signs reviewed: Yes - General General: Alert and oriented X 3, No acute distress - HEENT HEENT: PERRL, EOMI - Cardiac Cardiac: RRR, No murmur - Respiratory Respiratory: No respiratory distress, Clear bilaterally - Abdomen Abdomen: Non tender - Back Back: No CVA TTP, No spinal TTP - Derm Derm: Normal color, Warm and dry - Extremities Extremities: Other (Trace pitting pedal edema, symmetric) - Neuro Neuro: Alert and oriented X 3, Normal speech Results - Vitals Vitals: Vital Signs - 24 hr 04/02/22 04/02/22 13:56 14:29 Temperature 37.2 C Heart Rate 78 72 Respiratory 18 23 Rate Blood Pressure 180/98 H 167/102 H O2 Saturation 95 96 Oxygen O2 Source Room air - EKG (time done) 1401 Rate: Rate (enter#) (74) Rhythm: NSR [place]: Normal QRS: Low voltage (mild precordial) Ischemia: Normal ST segments - Labs Labs: Laboratory Tests 04/02/22 14:07 Sodium 138 Potassium 4.1 Chloride 102 Carbon Dioxide 28 Anion Gap 8.0 BUN 14 Creatinine 0.8 Estimated GFR (MDRD) 73 L Glucose 96 Calcium 9.4 PD MEDICAL DECISION MAKING - ED course ED course: 61-year-old has noted elevated blood pressures at home over the last few weeks. She is not on any antihypertensive agents. Normal renal function and unremarkable EKG here. No symptoms suggestive of endorgan damage. We will start hydrochlorothiazide pending follow-up. This was after discussion of side effects. Departure - Departure Disposition: Home, Self Care Clinical Impression: Hypertension Condition: Good Record reviewed to determine appropriate education?: Yes Instructions: ED Hypertension New Begin Tx Prescriptions: hydroCHLOROthiazide [Hydrodiuril] 25 mg PO DAILY #30 tablet Comments: You were seen today for elevated blood pressures, thankfully no sign of any kidney or heart damage or anything else serious other than the blood pressure. We are starting a diuretic known as hydrochlorothiazide. I sent this prescription electronically to the [facility] pharmacy here in [place]. You should still keep your appointment with the base in a couple of weeks, but if not better with blood pressures below 150 systolic over the next 5 to 7 days you can email me and we will add a second agent. Return for new or worsening symptoms. Discharge Date/Time: 04/02/22 14:37
[2022-04-02 14:22] LABS: CALCIUM 9.4 mg/dL (8.5-10.3); CREATININE 0.8 mg/dL (0.4-1.0); POTASSIUM 4.1 mmol/L (3.5-5.0)
[2022-04-02 14:32] VITALS: BP 167/102
--- NOTE | 2022-04-09 08:43 | ED Physician Documentation ---
ED Addendum - Addendum Addendum: 04/09/22 08:42 Received the following email from the pt: I have kept a diary of the last week the bottom number under 100 ,7 times range from lowest 79-99 top number range from 132-177 Today it is 163/107, so I thought I would contact you to make sure the medication is working. I escribed losartan 25mg po daily #30, NR for her. She has pcp f/u next week.
== END 2022-04-02 14:37 | disposition home or self-care (01) ==
LOC: ED 13:45
DX: I10 Essential (primary) hypertension (principal)
CPT/HCPCS: 36415; 80048; 93005; 99283

== ENCOUNTER 2022-09-11 14:42 | Outpatient (CLI) | payer OTHER ==
--- NOTE | 2022-09-11 16:16 | MRI Report ---
PROCEDURE: LUMBAR SPINE WO INDICATIONS: LUMBAR BACK PAIN TECHNIQUE: Noncontrast sagittal T1 spin echo and T2 fast echo, sagittal STIR, axial T1 and T2 fast spin echo thr ough the lumbar spine. In cases with scoliosis, additional coronal T2 fast spin echo may be performe d. COMPARISON: Plain films dated 03/07/2022 FINDINGS: Image quality: Excellent. Alignment and Curvature: 5 lumbar type vertebral bodies are present by plain film. There is loss of n ormal lumbar lordosis. 3 mm of retrolisthesis of L5 on S1. Bone Marrow: Marrow is of normal overall signal. No acute vertebral body compression fractures. Mi ld reactive signal throughout the endplates of the thoracolumbar spine. Spinal Cord: Conus medullaris terminates at the lower L1 level. Visualized cord demonstrates normal signal and size. Paraspinous Soft Tissues: No paravertebral masses. T12-L1: Mild disc height loss and desiccation. Mild diffuse disc bulge. Mild facet and ligament flav um hypertrophy. Mild lipomatosis. Mild canal stenosis. No foraminal stenosis. L1-L2: Mild disc height loss and desiccation. Mild diffuse disc bulge. Mild facet and ligament fla vum hypertrophy. Mild epidural lipomatosis. Mild canal stenosis. Mild bilateral foraminal stenosis. L2-L3: Mild disc height loss and desiccation. Mild diffuse disc bulge. Mild facet and ligament fla vum hypertrophy. Mild epidural lipomatosis. Mild canal stenosis. Mild bilateral foraminal stenosis. L3-L4: Mild disc desiccation and diffuse disc bulge. Mild facet and ligament flavum hypertrophy. Mi ld epidural lipomatosis. Mild canal stenosis. Mild bilateral foraminal stenosis. L4-L5: Mild disc desiccation and diffuse disc bulge. Mild facet and ligament flavum hypertrophy. Mi ld epidural lipomatosis. Moderate canal stenosis. Moderate subarticular foraminal stenosis bilaterall y. L5-S1: Mild disc height loss. Moderate disc desiccation. Mild diffuse disc bulge. Mild bilateral fa cet hypertrophy. Mild canal stenosis. Moderate subarticular foraminal stenosis bilaterally. IMPRESSION: 1. Multilevel degenerative disc and facet disease, in addition to epidural lipomatosis and ligamentum flavum hypertrophy. 2. Mild multilevel canal stenoses. 3. Multilevel foraminal stenoses, worst at L4-L5 and L5-S1 where there are moderate foraminal stenose s. Reviewed by: Toney Panchal MD on 09/11/2022 4:14 PM PST Approved by: Toney Panchal MD on 09/11/2022 4:14 PM PST Station ID: [id number]
== END 2022-09-11 14:43 | disposition home or self-care (01) ==
LOC: DI 14:42
PROVIDERS: ATTEND Orthopaedic Surgery
DX: M51.36 Other intervertebral disc degeneration, lumbar region (principal); M48.061 Spinal stenosis, lumbar region without neurogenic claudication; M51.37 Other intervertebral disc degeneration, lumbosacral region; M48.07 Spinal stenosis, lumbosacral region; M47.816 Spondylosis without myelopathy or radiculopathy, lumbar region; M47.817 Spondylosis without myelopathy or radiculopathy, lumbosacral region

== ENCOUNTER 2022-11-12 15:24 | Outpatient (CLI) | payer OTHER ==
[2022-11-12 16:02] VITALS: BP 114/72
--- NOTE | 2022-11-12 16:02 | SLEEP CARE CONSULTATION ---
Information from patient questionnaire entered by Lianna Moore. I have reviewed and concur with the information entered by Lianna Moore. This document represents the service I personally performed and the decisions made by me, Jaqueline Camacho ARNP. History of Present Illness Service Date and Time: 11/12/2022 1524 Previous diagnosis: Moderate, Obstructive Sleep Apnea-Hypopnea Syndrome AHI: 25.4 Reason for follow up: annual (LAST SEEN 07/2020) Equipment type: CPAP ([employer]ENTE Dreamstation) Equipment obtained from: [facility] (getting supplies as needed) Mask style: Nasal Backup mask available: Yes (old mask) Last cushion change: 3 weeks Prior sleep studies: Yes Year and Where: 2015 [place] in [facility] additional information: JULIET LAGUNAS was diagnosed to have moderate, AHI 25.4, obstructive sleep apnea- hypopnea syndrome and returned today for CPAP therapy annual follow-up. Sleep Study - Results Prior sleep studies: Yes Year and Where: 2015 [place] in [place] CPAP Compliance Data - Data Reviewed with Patient Average duration of nightly device use: 7 hours 36 minutes Compliance rate %: 89.4 (168/180 days used) Current pressure setting (cmH2O): 8 Average residual AHI: 2 Central apnea: 0.1 Obstructive apnea: 0.4 Hypopnea: 1.5 Subjective Missed days of use due to: reports: travel, other (babysitting grandkids and did not take it with her) Patient concerns: reports: other (headaches, occasionally). denies: aerophagia, mask discomfort, air blowing in eyes, mask leak noise, condensation in mask/hose, nasal congestion, dry mouth, nose, throat, epistaxis Observed to snore while using device: No Current pressure setting perceived as: comfortable On therapy, patient: reports: sleeping better, awakening more refreshed, being more awake and alert during the day, more rested overall. denies: drowsiness while driving Initial [place] Sleepiness Scale score: 14 (IN 2019) Current [place] Sleepiness Scale score: 7 (11/12/22) Allergies and Home Medications Drug allergies reviewed: Yes (latex, natural rubber) Home medication list reviewed: Yes (no changes) Review of Systems Review of systems same as previous: No (fall, had xray and waiting on results; possible enlarged heart) Physical Exam Vital signs obtained and entered by: LIANNA Kirkpatrick MA Blood Pressure: 114/72 (LEFT ARM) Cuff size: regular Heart Rate: 87 O2 Saturation: 98 Height: 5 ft 9 in Weight: 276 lb 9.6 oz Body Mass Index: 40.8 BMI Classification: Morbidly Obese Impression and Plan 1. Obstructive Sleep Apnea-Hypopnea Syndrome, moderate, with good treatment comp liance and good apnea control. On CPAP therapy, the patient has better sleep quality and is more rested overall. Patient has been doing well with her CPAP therapy. Her mask cushion fits well but she does have the headgear slipping off the back of her head. She would like to explore other options but does not want to try a full face mask. I will order a mask refitting for a nasal mask. Patient's apnea severity and rationale for treatment to reduce apnea, improve sleep quality and reduce cardiovascular and cerebrovascular events was reviewed. I also reviewed the benefit of consistent device use of CPAP for gastric reflux, depression and anxiety. 2. Obesity, unspecified. Currently patients BMI is 40.8. She has been limited in able to exercise by pain in her hip. She will get walking again once her pain is improved. She was advised to concentrate on a healthy diet and to limit empty calories. She voiced understanding. Obesity increases the risk of apnea, CPAP pressure requirements and overall health risks especially cardiovascular and diabetes. Thus patient is advised to lose weight. * Continue CPAP pressure at 8 cmH2O * Update supplies * Mask refitting for nasal mask * Notify me if snoring with mask or feeling that the pressure is too much or too little * Attempt to lose weight * Call this office if any problems using CPAP * Return for follow up in 1 year, or sooner if concerns arise Counseling Topics: Spare mask, Weight loss health impact Visit Type: In Office Time Spent with Patient (minutes): 21 Provider Statement: I spent 100% of the Face to Face Visit with the patient with greater than 50% spent counseling the patient and coordination of care.
== END 2022-11-12 15:25 | disposition home or self-care (01) ==
LOC: SC 15:24
PROVIDERS: ATTEND Nurse Practitioner Family
DX: G47.33 Obstructive sleep apnea (adult) (pediatric) (principal); E66.01 Morbid (severe) obesity due to excess calories; Z68.41 Body mass index [BMI] 40.0-44.9, adult
CPT/HCPCS: 99212; 99213

== ENCOUNTER 2022-11-15 07:00 | Outpatient (CLI) | payer OTHER ==
--- NOTE | 2022-11-15 19:01 | XRAY Report ---
PROCEDURE: Knee 3 View RT INDICATIONS: RIGHT KNEE SPRAIN TECHNIQUE: 3 views of the right knee(s) were acquired. COMPARISON: None. FINDINGS: Bones: No fractures or dislocations. No suspicious bony lesions. Mild medial lateral compartmental joint space narrowing with small marginal osteophytes are present. Soft tissues: No joint effusion. No suspicious soft tissue calcifications. IMPRESSION: Mild osteoarthritis Reviewed by: Terry Neal MD on 11/15/2022 6:00 PM [facility] Approved by: Terry Neal MD on 11/15/2022 6:00 PM [facility] Station ID: [id number]
== END 2022-11-15 23:59 | disposition home or self-care (01) ==
LOC: DI.S 07:00
PROVIDERS: ATTEND Registered Nurse
DX: M17.11 Unilateral primary osteoarthritis, right knee (principal)

== ENCOUNTER 2022-12-11 10:26 | Outpatient (CLI) | payer OTHER | END 2022-12-11 10:27 | disposition home or self-care (01) | LOC: DI 10:26 | PROVIDERS: ATTEND Family Medicine | DX: I51.7 Cardiomegaly (principal) | CPT/HCPCS: 93306 ==

== ENCOUNTER 2023-01-14 08:00 | Outpatient (CLI) | payer OTHER ==
--- NOTE | 2023-01-15 08:52 | XRAY Report ---
PROCEDURE: Hip 2 View LT INDICATIONS: LEFT HIP PAIN TECHNIQUE: 2 views of the hip were acquired. COMPARISON: None. FINDINGS: Bones: No fractures or dislocations. No suspicious bony lesions. Moderate degenerative joint dise ase in the left hip. There is an surgical in the superior acetabulum. There is mild degenerative join t disease in right hip and sacroiliac joints bilaterally. Degenerative changes noted in the lower lum bar spine. Soft tissues: No suspicious soft tissue calcifications or masses. IMPRESSION: 1. Moderate degenerative joint disease in left hip. 2. Ossicle in the superior acetabulum. There is clinical concern for labral tear, consider MRI hip ar throgram for follow-up. Reviewed by: Cara Kennedy MD on 01/15/2023 8:50 AM PDT Approved by: Cara Kennedy MD on 01/15/2023 8:50 AM PDT Station ID: [id number]
== END 2023-01-14 08:01 | disposition home or self-care (01) ==
LOC: DI.WOS 08:00
PROVIDERS: ATTEND Orthopaedic Surgery
DX: M70.62 Trochanteric bursitis, left hip (principal); M16.12 Unilateral primary osteoarthritis, left hip

== ENCOUNTER 2023-09-04 11:06 | Outpatient (CLI) | payer OTHER ==
--- NOTE | 2023-09-04 13:30 | XRAY Report ---
PROCEDURE: Hip 2 View LT INDICATIONS: LEFT HIP PAIN TECHNIQUE: AP view the pelvis and a frog-leg lateral view of the left hip were acquired. COMPARISON: 01/14/2023 FINDINGS: Bones: No fractures or dislocations. No suspicious bony lesions. Severe degenerative arthritis of the left hip with osteophytes off the acetabulum and severe inferior medial and superior lateral vernell nt space loss. Moderate right hip degenerative arthritis. Soft tissues: No suspicious soft tissue calcifications or masses. IMPRESSION: Severe left hip degenerative arthritis, moderate right hip degenerative arthritis. Reviewed by: Karri Mcintyre MD on 09/04/2023 1:29 PM PST Approved by: Karri Mcintyre MD on 09/04/2023 1:29 PM PST Station ID: [id number]
== END 2023-09-04 23:59 | disposition home or self-care (01) ==
LOC: DI.WOS 11:06
PROVIDERS: ATTEND Orthopaedic Surgery
DX: M16.0 Bilateral primary osteoarthritis of hip (principal)

== ENCOUNTER 2023-10-04 22:17 | Emergency (ER) | payer OTHER ==
--- NOTE | 2023-10-04 22:48 | ED Physician Documentation ---
PD HPI DYSPNEA - Stated complaint Stated Complaint: SOA,C+ - Chief complaint Chief Complaint: Resp - History obtained from History obtained from: Patient - Additional information Additional information: HPI from patient. 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 Symptoms have been ongoing for nearly a week. She says she tested positive for COVID 4 days ago. She presents at this time primarily for worsening sore throat and dyspnea. Denies chest pain. No h/o pulmonary diagnoses such as asthma, COPD. 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 : Other HEENT: None Psych: None Musculoskeletal: Rheumatoid arthritis, Other Derm: None - Past Surgical History Past Surgical History: Yes General: Cholecystectomy, Colonoscopy, EGD /ROUGH RICE GRADER: Tubal ligation, Breast reduction HEENT: Other - Present Medications Home Medications: Ambulatory Orders Medication Instructions Recorded Confirmed hydroCHLOROthiazide [Hydrodiuril] 25 mg PO DAILY #30 tablet 04/02/22 10/04/23 Losartan Potassium 25 mg PO DAILY #30 tablet 04/09/22 10/04/23 Acetaminophen [Tylenol] See Rx Instructions .ROUTE .COMPLEX 11/12/22 10/04/23 Cholecalciferol [Vitamin D3] See Rx Instructions .ROUTE .COMPLEX 11/12/22 10/04/23 Magnesium See Rx Instructions .ROUTE .COMPLEX 11/12/22 10/04/23 Methotrexate Inj [Methotrexate] 0.1 ml IM 10/04/23 Nabumetone 500 mg PO DAILY PRN 10/04/23 10/04/23 Albuterol Sulf [Ventolin Hfa 1 - 2 puffs INH Q4HR PRN #1 each 10/05/23 Inhaler] oxyCODONE [Roxicodone] 5 - 10 mg PO Q6H PRN #14 tablet 10/05/23 Benzonatate [Tessalon] 100 mg PO TID PRN #40 ea 10/08/23 - Allergies Allergies/Adverse Reactions: Allergies Allergy/AdvReac Type Severity Reaction Status Date / Time Latex, Natural Rubber Allergy Rash Verified 01/13/24 22:23 - Social History Does the pt smoke?: No Smoking Status: Never smoker Does the pt drink ETOH?: Yes Does the pt have substance abuse?: No - Immunizations Immunizations are current?: No Immunizations: TDAP >10years/unknown - POLST Patient has POLST: No PD ED PE NORMAL - Vitals Vital signs reviewed: Yes - General General: Alert and oriented X 3, No acute distress, Well developed/nourished, Other (speaks with hoarse, quiet voice) - Neck Neck: Supple, no meningeal sign - Cardiac Cardiac: RRR, No murmur - Respiratory Respiratory: No respiratory distress, Clear bilaterally - Extremities Extremities: No edema PD ED PE EXPANDED - HEENT HEENT: Pharyngeal erythema. No: Swollen tonsils, Tonsillar exudate Results - Vitals Vitals: Oxygen O2 Source Room air - Labs Labs: Microbiology 10/04/23 23:00 Group A Strep Throat Culture - Final Throat MIXED OROPHARYNGEAL AMENA PRESENT. NO BETA STREP PRESENT IN CULTURE. Laboratory Tests 10/04/23 10/04/23 23:00 23:00 Nasal Adenovirus (PCR) NOT DETECTED Nasal B. parapertussis DNA (PCR) NOT DETECTED Nasal Coronavir 229E PCR NOT DETECTED Nasal Coronavir HKU1 PCR NOT DETECTED Nasal Coronavir NL63 PCR NOT DETECTED Nasal Coronavir OC43 PCR NOT DETECTED Nasal Enterovir/Rhinovir PCR NOT DETECTED Nasal Influenza B PCR NOT DETECTED Nasal Influenza A PCR NOT DETECTED Nasal Parainfluen 1 PCR NOT DETECTED Nasal Parainfluen 2 PCR NOT DETECTED Nasal Parainfluen 3 PCR NOT DETECTED Nasal Parainfluen 4 PCR NOT DETECTED Nasal RSV (PCR) NOT DETECTED Nasal B.pertussis DNA PCR NOT DETECTED Nasal C.pneumoniae (PCR) NOT DETECTED Meet Human Metapneumo PCR NOT DETECTED Nasal M.pneumoniae (PCR) NOT DETECTED Nasal SARS-CoV-2 (PCR) NOT DETECTED Group A Strep Rapid Negative - Rads (name of study) chest xray Relevant Findings:: Prelim report reviewed, See rad report PD Medical Decision Making - ED course Complexity details: reviewed results, re-evaluated patient, considered differential, d/w patient ED course: Afebrile in ED with normal room air pulse ox. Lungs CTA bilaterally but consistently coughing with deep inspiration. She is given 5mg oxycodone and 10mg PO decadron for pharyngitis/sore throat. Initially duonegonzalo ordered to see if this would improve her dyspnea and coughing paroxysms, but this is cancelled so as to not increase infectious risk of COVID for ED staff. Instead she is given albuterol MDI and takes 2 puffs from this. She reports improvement with these measures. Subsequently, her respiratory PCR panel returns negative for the viruses on our panel including COVID, influenza, RSV. Rapid strep negative, as well, and unremarkable CXR. Despite the respiratory PCR panel result, H+P are still most consistent with viral bronchitis with possible bronchospasm (coughing paroxysms triggered with deep inspiration). Results d/w patient, return precautions reviewed. She is given a second dose of 5mg PO oxycodone for residual throat pain, and e-prescribed albuterol MDI and oxycodone. I am prescribing a short course of short-acting opioid pain medication for this patient. I have reviewed the patients CLINICAL APPEALS RN and no concerning findings were noted. I have discussed that the opioids are for short term therapy only, and will not be refilled from the ED. Departure - Departure Disposition: 01 Home, Self Care Clinical Impression: Bronchitis Pharyngitis Qualifiers: Pharyngitis/tonsillitis etiology: unspecified etiology Qualified Code(s): J02.9 - Acute pharyngitis, unspecified Condition: Good Instructions: ED Upper Resp Infec No Abx Tx, ED Pharyngitis Viral Report Pending Prescriptions: Albuterol Sulf [Ventolin Hfa Inhaler] 1 - 2 puffs INH Q4HR PRN #1 each PRN Reason: Shortness Of Air/Wheezing oxyCODONE [Roxicodone] 5 - 10 mg PO Q6H PRN #14 tablet PRN Reason: Pain >8 Benzonatate [Tessalon] 100 mg PO TID PRN #40 ea PRN Reason: Cough Comments: There were no abnormalities on the chest x-ray. The strep test was negative and the nasal swab tested negative for a number of viruses including COVID, influenza, and RSV. The exact cause of your symptoms is not apparent at this time, but viral pharyngitis/bronchitis is most likely. I have electronically submitted prescriptions for oxycodone (narcotic/opiate pain medication) and an albuterol inhaler to the [facility] pharmacy in [place]. Follow-up in 3 to 5 days with your primary care provider if your symptoms have not significantly improved. I am prescribing a short course of narcotic pain medication for you. These are potentially dangerous and addictive medications that should be used carefully. These medications may constipate you. Take an zydx-nql-etuzkqi stool softener (docusate) twice daily with plenty of water while taking these medications. If you go 24 hours without a bowel movement, take [id number] miralax, per package instructions. Do not drink or drive while taking these medications. If you received narcotic or sedating medications while in the emergency department, do not drive for 24 hours. Store this medication in a safe, secure place and out of reach of children. It is a violation of federal law to give or sell this medication to another person or to use in a manner other than prescribed. The ED will not refill narcotic prescriptions, including prescriptions lost or stolen. To dispose of unwanted medications: 1. [facility] [address] in [place] has a medication drop box. They accept prescription medications (in pill form) Friday through Friday 9:00 a.m. to 5:00 p.m. 2. The [facility] [employer] accepts prescription medications (in pill form only) for disposal year round. Call for more information. 3. Contact the [facility] for the next [facility] sponsored prescription drug collection event. , [phone], or [phone]; Forms: PCP List Discharge Date/Time: 10/05/23 01:18
[2023-10-04] MEDS: ALBUTEROL 1 PUFF INH STA (23:22)
[2023-10-04] MEDS: CHERRY SYRUP 10 ML UDC PO ONE (23:24)
[2023-10-04] MEDS: DEXAMETHASONE 10 MG/ML VIAL PO STA (23:24)
[2023-10-04] MEDS: oxyCODONE 5 MG TABLET PO STA (23:24)
[2023-10-04] MEDS: IPRATROPIUM/ALBUTEROL 3 ML NEB INH STA (23:28)
[2023-10-04 23:40] LABS: RAPID STREP SCREEN Negative (Negative)
--- NOTE | 2023-10-05 | XRAY Report ---
PROCEDURE: Chest 2V INDICATIONS: dyspnea TECHNIQUE: 2 views of the chest were acquired. COMPARISON: None. FINDINGS: Surgical changes and devices: None. Lungs and pleura: No pleural effusions or pneumothorax. Lungs are clear. Mediastinum: Mediastinal contours appear normal. Heart size is normal. Bones and chest wall: No suspicious bony lesions. Overlying soft tissues appear unremarkable. IMPRESSION: No acute cardiopulmonary process. Reviewed by: Nahun Funez MD on 10/04/2023 11:59 PM PST Approved by: Nahun Funez MD on 10/04/2023 11:59 PM PST Station ID: [id number]
[2023-10-05 00:34] LABS: B. PARAPERTUSSIS- RESP PCR PAN NOT DETECTED; B. PERTUSSIS- RESP PCR PANEL NOT DETECTED; C. PNEUMONIAE- RESP PCR PANEL NOT DETECTED; CORONAVIRUS 229E-RESP PCR NOT DETECTED; CORONAVIRUS HKU1-RESP PCR NOT DETECTED; CORONAVIRUS NL63-RESP PCR NOT DETECTED; CORONAVIRUS OC43-RESP PCR NOT DETECTED; HUMAN METAPNEUMOVIRUS NOT DETECTED; INFLUENZA A- RESP PCR PANEL NOT DETECTED; INFLUENZA B - RESP PCR PANEL NOT DETECTED; M. PNEUMONIAE- RESP PCR PANEL NOT DETECTED; PARAINFLUENZA VIRUS 1 NOT DETECTED; PARAINFLUENZA VIRUS 2 NOT DETECTED; PARAINFLUENZA VIRUS 3 NOT DETECTED; PARAINFLUENZA VIRUS 4 NOT DETECTED; RHINOVIRUS/ENTEROVIRUS NOT DETECTED; RSV- RESP PCR PANEL NOT DETECTED; SARS-CoV-2 -RESP PCR PANEL NOT DETECTED
[2023-10-05] MEDS: oxyCODONE 5 MG TABLET PO STA (01:07)
[2023-10-05 01:20] VITALS: BP 156/82; O2SAT 95
== END 2023-10-05 01:18 | disposition home or self-care (01) ==
LOC: ED 22:17
DX: J40 Bronchitis, not specified as acute or chronic (principal); J02.9 Acute pharyngitis, unspecified; I10 Essential (primary) hypertension; Z79.899 Other long term (current) drug therapy
CPT/HCPCS: 71046; 87070; 87430; 87633; 94640; 94664; 99284; A9270

== ENCOUNTER 2023-10-17 16:15 | Outpatient (CLI) | payer OTHER ==
--- NOTE | 2023-10-17 17:11 | XRAY Report ---
PROCEDURE: Hand 3+V BL INDICATIONS: PARATHESIAS TECHNIQUE: 3 views of the hand(s) acquired. COMPARISON: None. FINDINGS: Bones: Mild DJD of the right second and third distal interphalangeal joints with joint space narrowi ng, subchondral sclerosis and small osteophytes on the right. Mild DJD of the first interphalangeal j oint with joint space narrowing, subchondral sclerosis and small osteophytes on the right. No fractur es or dislocations. No suspicious bony lesions. Soft tissues: No suspicious soft tissue calcifications or masses. 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 Mild DJD of the first interphalangeal joint on the right. No osseous abnormality of the left hands seen. Reviewed by: Francisco Javier Gallardo MD on 10/17/2023 5:09 PM PST Approved by: Francisco Javier Gallardo MD on 10/17/2023 5:09 PM PST Station ID: [id number]
== END 2023-10-17 16:16 | disposition home or self-care (01) ==
LOC: DI 16:15
PROVIDERS: ATTEND Specialist/Technologist Athletic Trainer
DX: R20.2 Paresthesia of skin (principal); R29.898 Other symptoms and signs involving the musculoskeletal system; M18.11 Unilateral primary osteoarthritis of first carpometacarpal joint, right hand; M19.041 Primary osteoarthritis, right hand; Z83.79 Family history of other diseases of the digestive system; Z82.69 Family history of other diseases of the musculoskeletal system and connective tissue

== ENCOUNTER 2023-11-14 11:29 | Emergency (ER) | payer OTHER ==
--- NOTE | 2023-11-14 11:49 | ED Physician Documentation ---
PD HPI CHEST PAIN - Stated complaint Stated Complaint: CHEST/LEFT ARM PX,NAUSEA,ANXIETY - Chief complaint Chief Complaint: Cardiac - History obtained from History obtained from: Patient - History of Present Illness Timing - onset: Last night, Yesterday Timing - onset during: Light activity Timing - duration: Hours Timing - details: Gradual onset, Still present, Waxing and waning (pain in epigastric to substernal area since last night. has some increase with torso movement. abruptly/unexpectedly few days ago and the chest pain started that evening.) Quality: Tightness, Aching Location: Substernal, Right chest Radiation: No: Neck, Back Improved by: No: Rest Associated symptoms: Nausea, Other (trouble sleeping the past 4 nights and feeling stressed/anxious.). No: Shortness of air, Feeling faint / dizzy Similar symptoms before: Has not had sx before Recently seen: Not recently seen Review of Systems Constitutional: denies: Fever, Chills Nose: denies: Rhinorrhea / runny nose, Congestion Throat: denies: Sore throat Cardiac: reports: Chest pain / pressure. denies: Palpitations, Pedal edema, Calf pain Respiratory: denies: Dyspnea, Cough GI: reports: Nausea. denies: Abdominal Pain, Vomiting, Diarrhea Musculoskeletal: reports: Extremity swelling (mild edema by end of the day commonly. Not recently worse.) PD PAST MEDICAL HISTORY - Past Medical History Past Medical History: Yes Cardiovascular: Hypertension, Other (possible enlarged heart on CXR with ECHO to evaluation November 2022 without acute findings. EF 60%. No wall motion agnormalities. 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 : Other HEENT: None Psych: None Musculoskeletal: Rheumatoid arthritis, Other Derm: None - Past Surgical History Past Surgical History: Yes General: Cholecystectomy, Colonoscopy, EGD /PICKLING TANK OPERATOR: Tubal ligation, Breast reduction HEENT: Other - Present Medications Home Medications: Ambulatory Orders Medication Instructions Recorded Confirmed hydroCHLOROthiazide [Hydrodiuril] 25 mg PO DAILY #30 tablet 04/02/22 10/04/23 Losartan Potassium 25 mg PO DAILY #30 tablet 04/09/22 10/04/23 Acetaminophen [Tylenol] See Rx Instructions .ROUTE .COMPLEX 11/12/22 10/04/23 Cholecalciferol [Vitamin D3] See Rx Instructions .ROUTE .COMPLEX 11/12/22 10/04/23 Magnesium See Rx Instructions .ROUTE .COMPLEX 11/12/22 10/04/23 Methotrexate Inj [Methotrexate] 0.1 ml IM 10/04/23 Nabumetone 500 mg PO DAILY PRN 10/04/23 10/04/23 Albuterol Sulf [Ventolin Hfa 1 - 2 puffs INH Q4HR PRN #1 each 10/05/23 Inhaler] Benzonatate [Tessalon] 100 mg PO TID PRN #40 ea 10/08/23 Famotidine [Pepcid] 20 mg PO DAILY #20 tablet 11/14/23 LORazepam [Ativan] 1 mg PO Q8H PRN #20 tablet 11/14/23 - Allergies Allergies/Adverse Reactions: Allergies Allergy/AdvReac Type Severity Reaction Status Date / Time Latex, Natural Rubber Allergy Rash Verified 11/14/23 11:46 - Living Situation Living Situation: denies: With spouse/s.o. (had been living with spouse, but he 4 days ago. ) Living Arrangement: reports: At home - Social History Does the pt smoke?: No Smoking Status: Never smoker Does the pt drink ETOH?: Yes Does the pt have substance abuse?: No - Immunizations Immunizations are current?: No Immunizations: TDAP >10years/unknown - POLST Patient has POLST: No PD ED PE NORMAL - Vitals Vital signs reviewed: Yes - General General: Alert and oriented X 3, Well developed/nourished, Other (appears tearful and stresse/anxious. Pleasant and conversant though. ) - Cardiac Cardiac: RRR, No murmur, Other (chest wall tenderness right sternal border. Minimal tenderness epigastric without guarding. ) - Respiratory Respiratory: No respiratory distress, Clear bilaterally - Abdomen Abdomen: Soft, Non tender - Extremities Extremities: Normal ROM s pain, No edema, No calf tenderness / cord - Neuro Neuro: Alert and oriented X 3, No motor deficit, Normal speech Results - Vitals Vitals: Vital Signs - 24 hr 11/14/23 11/14/23 11:44 14:11 Temperature 36.5 C Heart Rate 92 65 Respiratory 18 16 Rate Blood Pressure 142/78 H 139/81 H O2 Saturation 98 97 Oxygen O2 Source Room air - EKG (time done) 11:50 EKG releavant findings:: EKG personally interpreted by author of this note. Relevant findings are: Rate: Rate (enter#) (81) Rhythm: NSR [place]: Normal Intervals: Normal MS QRS: Normal Ischemia: Normal ST segments. No: ST elevation c/w ischemia, ST depression Compare to prior EKG: Old EKG unavailable - Labs Labs: Laboratory Tests 11/14/23 11/14/23 11/14/23 11:56 11:56 11:56 WBC 8.4 RBC 4.34 Hgb 12.0 Hct 36.8 L MCV 84.8 MCH 27.6 MCHC 32.6 RDW 14.6 Plt Count 347 MPV 8.9 Neut # (Auto) 5.5 Lymph # (Auto) 2.0 [place] # (Auto) 0.7 Eos # (Auto) 0.1 Baso # (Auto) 0.1 Absolute Nucleated RBC 0.00 Nucleated RBC % 0.0 Sodium 137 Potassium 3.3 L Chloride 102 Carbon Dioxide 27 Anion Gap 8.0 BUN 8 Creatinine 0.9 Estimated GFR (MDRD) 64 L Glucose 121 H Calcium 9.2 Total Bilirubin 0.6 AST 15 ALT 15 Alkaline Phosphatase 69 Troponin I High Sens 2.8 B-Natriuretic Peptide 36 Total Protein 7.1 Albumin 4.0 Globulin 3.1 Albumin/Globulin Ratio 1.3 Lipase 34 - Rads (name of study) chest xray Relevant Findings:: Prelim report reviewed, EMP independent interpretation of test (no acute abnormalities. ) PD Medical Decision Making - ED course Complexity details: reviewed results, re-evaluated patient (much improved with gi cocktail. ), considered differential (chest pain since last evening with normal ECG, CXR and troponin. Has had some muscular component with chest wall tenderness, but also seems some GI as well. Given GI cocktail here with considerable improvment. Seems components of costochondral and espohageal. ), d/w patient Departure - Departure Disposition: 01 Home, Self Care Clinical Impression: Chest pain, Esophagitis, Situational anxiety, Grief reaction Condition: Stable Record reviewed to determine appropriate education?: Yes Follow-Up: LEONARD PEREZ DO [Primary Care Provider] - Prescriptions: LORazepam [Ativan] 1 mg PO Q8H PRN #20 tablet PRN Reason: Alcohol Withdrawal Famotidine [Pepcid] 20 mg PO DAILY #20 tablet Comments: Your EKG, chest x-ray, blood test including troponin and BNP are normal without any signs of heart or lung abnormalities. You did get some improvement with the antacids. I presume likely some esophagitis or irritation of the stomach. There is seems to be some element of chest wall tenderness as well. Tylenol 4 times daily to help with pain musculoskeletal. I would suggest acid reducing medicine such as famotidine twice daily for several days and then once daily for few weeks. Add antacids such as Maalox and Mylanta if needed. For anxiety/sleep, you can use lorazepam/Ativan 1 mg initially at night for sleep and see if that is effective. You can go up to 2 mg if needed. If needed during the day for anxiety, I would start with 0.5 mg initially and see how that does for you and go up to 1 mg if needed every 8 hours or so. This would be intended short-term. I sent your prescriptions to preferred pharmacy. Forms: PCP List Discharge Date/Time: 11/14/23 14:25
[2023-11-14 12:01] LABS: BASOPHILS # (AUTO) 0.1 10^3/uL (0.0-0.1); BASOPHILS % (AUTO) 0.7 %; EOSINOPHILS # (AUTO) 0.1 10^3/uL (0.0-0.7); EOSINOPHILS % (AUTO) 1.3 %; HCT - HEMATOCRIT 36.8 % (37.0-47.0); LYMPHOCYTES % (AUTO) 23.6 %; MEAN CORPUSCULAR HEMOGLOBIN 27.6 pg (27.0-31.0); MEAN CORPUSCULAR HGB CONC 32.6 g/dL (32.0-36.0); MEAN CORPUSCULAR VOLUME 84.8 fL (81.0-99.0); MEAN PLATELET VOLUME 8.9 fL (7.9-10.8); MONOCYTES # (AUTO) 0.7 10^3/uL (0.0-1.0); MONOCYTES % (AUTO) 8.1 %; NEUTROPHILS # (AUTO) 5.5 10^3/uL (1.5-6.6); NEUTROPHILS % (AUTO) 65.6 %; PLT - PLATELET COUNT 347 10^3/uL (130-450); RED BLOOD COUNT 4.34 10^6/uL (4.20-5.40); RED CELL DISTRIBUTION WIDTH 14.6 % (12.0-15.0); WHITE BLOOD COUNT 8.4 x10^3/uL (4.8-10.8)
[2023-11-14 12:16] LABS: ALBUMIN/GLOBULIN RATIO 1.3 (1.0-2.2); BILIRUBIN,TOTAL 0.6 mg/dL (0.2-1.0); CALCIUM 9.2 mg/dL (8.5-10.3); CREATININE 0.9 mg/dL (0.6-1.3); POTASSIUM 3.3 mmol/L (3.5-4.5); TOTAL PROTEIN 7.1 g/dL (6.4-8.9)
[2023-11-14 12:21] LABS: TROPONIN I HIGH SENSITIVITY 2.8 ng/L (2.3-14.8)
--- NOTE | 2023-11-14 12:32 | XRAY Report ---
PROCEDURE: Chest 1V INDICATIONS: Chest pain TECHNIQUE: One view of the chest was acquired. COMPARISON: Chest radiograph 10/04/2023. FINDINGS: Surgical changes and devices: None. Lungs and pleura: No pleural effusions or pneumothorax. Lungs are clear. Mediastinum: Mediastinal contours appear normal. Heart size is normal. Bones and chest wall: No suspicious bony lesions. Overlying soft tissues appear unremarkable. IMPRESSION: No acute cardiopulmonary process. Reviewed by: Sharon Berrios MD on 11/14/2023 12:30 PM PST Approved by: Sharon Berrios MD on 11/14/2023 12:30 PM PST Station ID: [id number]
[2023-11-14] MEDS: MAG HYDROX/AL HYDROX/SIMETH 30 ML UDC PO STA (12:44)
[2023-11-14] MEDS: KETOROLAC 15 MG/ML VIAL IM STA (12:44)
[2023-11-14] MEDS: LIDOCAINE VISCOUS 2% 15 ML ORAL SYRINGE MM STA (12:44)
[2023-11-14] MEDS: KETOROLAC 15 MG/ML VIAL IVP STA (12:57)
[2023-11-14] MEDS: LORazepam 0.5 MG TABLET PO STA (14:13)
[2023-11-14] MEDS: FAMOTIDINE 20 MG TABLET PO STA (14:13)
[2023-11-14 14:19] VITALS: BP 139/81; O2SAT 97
== END 2023-11-14 14:25 | disposition home or self-care (01) ==
LOC: ED 11:29
DX: F41.8 Other specified anxiety disorders (principal); F43.20 Adjustment disorder, unspecified; R07.89 Other chest pain; K20.90 Esophagitis, unspecified without bleeding; I10 Essential (primary) hypertension; J44.9 Chronic obstructive pulmonary disease, unspecified; Z79.899 Other long term (current) drug therapy; Z91.040 Latex allergy status
CPT/HCPCS: 36415; 71045; 80053; 83690; 83880; 84484; 85025; 93005; 96372; 99284; A9270

== ENCOUNTER 2023-12-12 16:43 | Outpatient (CLI) | payer OTHER ==
[2023-12-12 17:00] LABS: BASOPHILS # (AUTO) 0.1 10^3/uL (0.0-0.1); BASOPHILS % (AUTO) 0.9 %; EOSINOPHILS # (AUTO) 0.3 10^3/uL (0.0-0.7); EOSINOPHILS % (AUTO) 4.2 %; HCT - HEMATOCRIT 36.5 % (37.0-47.0); LYMPHOCYTES % (AUTO) 24.6 %; MEAN CORPUSCULAR HEMOGLOBIN 27.8 pg (27.0-31.0); MEAN CORPUSCULAR HGB CONC 32.9 g/dL (32.0-36.0); MEAN CORPUSCULAR VOLUME 84.5 fL (81.0-99.0); MEAN PLATELET VOLUME 9.2 fL (7.9-10.8); MONOCYTES # (AUTO) 0.7 10^3/uL (0.0-1.0); MONOCYTES % (AUTO) 8.2 %; NEUTROPHILS % (AUTO) 61.7 %; PLT - PLATELET COUNT 367 10^3/uL (130-450); RED BLOOD COUNT 4.32 10^6/uL (4.20-5.40); WHITE BLOOD COUNT 8.2 x10^3/uL (4.8-10.8)
[2023-12-12 17:29] LABS: THYROID STIMULATING HORMONE 2.38 uIU/mL (0.34-5.60)
== END 2023-12-12 16:44 | disposition home or self-care (01) ==
LOC: LAB 16:43
PROVIDERS: ATTEND Nurse Practitioner
DX: N95.0 Postmenopausal bleeding (principal)
CPT/HCPCS: 36415; 84443; 85025

== ENCOUNTER 2023-12-19 06:48 | Outpatient (CLI) | payer OTHER ==
--- NOTE | 2023-12-19 22:11 | Ultrasound Report ---
PROCEDURE: Pelvic w/Transvaginal INDICATIONS: POST MENOPAUSAL BLEEDING TECHNIQUE: Real-time scanning was performed of the pelvic organs, with image documentation. Additional endovagi nal scanning was necessary due to incomplete visualization of the adnexal and endometrial structures by transabdominal scanning. COMPARISON: None. FINDINGS: Uterus: Uterus is anteverted and normal in size at 6.2 x 3.8 x 3 cm. The myometrium is homogeneous. The endometrium measures 2 mm in combined thickness. No fibroids seen. Small nabothian cysts. Ovaries: The right ovary measures 1.6 x 1 x 0.9 cm, with a calculated ovarian volume of 1 cc. The l eft ovary measures 1.2 x 1.2 x 1 cm, with a calculated ovarian volume of 1 cc. The ovaries have a no rmal sonographic appearance. Less than 12 follicles can be seen in each ovary. No adnexal masses ar e seen. No cystic lesions measuring greater than 3 cm. Other: No pathologic free abdominal or pelvic fluid. IMPRESSION: 1. Endometrium measures 2 mm. Within normal limits. 2. No fibroids seen. 3. No significant ovarian cysts. Reviewed by: Puneet Little MD on 12/19/2023 10:09 PM PDT Approved by: Puneet Little MD on 12/19/2023 10:09 PM PDT Station ID: [id number]
== END 2023-12-19 06:49 | disposition home or self-care (01) ==
LOC: DI 06:48
PROVIDERS: ATTEND Nurse Practitioner
DX: N95.0 Postmenopausal bleeding (principal)

== ENCOUNTER 2023-12-19 11:21 | Outpatient (CLI) | payer OTHER ==
--- NOTE | 2023-12-22 09:06 | Mammography Report ---
BILATERAL DIGITAL SCREENING MAMMOGRAM 3D/2D: 12/19/2023 CLINICAL: Routine screening. Comparison is made to exams dated: 12/07/2020 mammogram, 11/22/2019 mammogram - [facility], and 11/20/2018 mammogram - [facility]. There are scattered areas of fibroglandular density in both breasts (category b / 25%-50% glandular t issue). There is a round low density focal asymmetry in the left breast at 6 o'clock middle depth. No other significant masses, calcifications, or other findings are seen in either breast. IMPRESSION: INCOMPLETE: NEEDS ADDITIONAL IMAGING EVALUATION The round low density focal asymmetry in the left breast resembles a skin lesion and is indeterminate . Additional views with possible ultrasound are recommended. Based on the Tyrer Cuzick model (a risk assessment model) the patient's lifetime risk is 6.4% and her 10 year risk is 2.7%. According to the ACR, ACS, and NCCN guidelines, an annual breast MRI exam danilo g with mammogram is recommended if the patient's lifetime risk is 20% or greater. This exam was interpreted at Station ID: [id number]. NOTE: For mammograms, a report in lay terms will be sent to the patient. Approximately 15% of breast malignancies will not be visualized mammographically. In the management of a palpable breast mass, a negative mammogram must not discourage biopsy of a clinically suspicious lesion. Electronically Signed By: Lexi odell/dangelo:12/19/2023 17:20:24 ACR BI-RADS Category 0: Incomplete 3340F PARENCHYMAL PATTERN: (A) - The breast(s) demonstrate(s) scattered fibroglandular densities. BI-RADS CATEGORY: (0) - 0 Mammo and [place] [id number] Immediate follow-up LATERALITY: (B)
== END 2023-12-19 11:22 | disposition home or self-care (01) ==
LOC: DI 11:21
DX: Z12.31 Encounter for screening mammogram for malignant neoplasm of breast (principal); R92.8 Other abnormal and inconclusive findings on diagnostic imaging of breast; R92.323 Mammographic fibroglandular density, bilateral breasts

== ENCOUNTER 2023-12-25 09:36 | Outpatient (CLI) | payer OTHER ==
[2023-12-25 10:26] LABS: CHOLESTEROL 256 mg/dL; HDL CHOLESTEROL 43 mg/dL; LDL CHOLESTEROL,CALCULATED 169 mg/dL; LDL/HDL RATIO 3.9 (<4.4); TRIGLYCERIDES 222 mg/dL (48-352); VLDL CHOLESTEROL 44 mg/dL
== END 2023-12-25 09:37 | disposition home or self-care (01) ==
LOC: LAB 09:36
PROVIDERS: ATTEND Internal Medicine Cardiovascular Disease
DX: I10 Essential (primary) hypertension (principal); R53.83 Other fatigue; Z82.49 Family history of ischemic heart disease and other diseases of the circulatory system
CPT/HCPCS: 36415; 80061; 81599; 83721

== ENCOUNTER 2023-12-31 16:39 | Outpatient (CLI) | payer SELFPAY ==
--- NOTE | 2023-12-31 19:32 | CT Report ---
PROCEDURE: CT heart coronary calcium scoring without contrast TECHNIQUE: MDCT non-contrast cardiac gated images were obtained from the james through the inferior margin of the heart. Calcium score was obtained by post-processing with external software. Automated exposure control was used to reduce patient radiation dose. INDICATION: CAD screening, low or intermediate risk COMPARISON: None. FINDINGS: Image quality: Excellent Agatston method: Total calcium score: 0 L main: 0 LAD: 0 LCX: 0 RCA: 0 Heart findings: Mitral annular calcifications: No significant calcifications. Aortic valve: No significant valvular calcifications. Chambers: No significant enlargement on this non-dynamic study. Pericardium: No effusion. Other findings (note the chest is incompletely imaged on this limited non-contrast study): Lungs and pleura: No pleural effusion. No actionable lung nodules. Mediastinum: No pathologic lymphadenopathy. Upper abdomen: Partially seen, unremarkable. Bones: No acute or suspicious abnormality. IMPRESSION: No coronary artery calcification can be seen. Incidentals: None significant. Coronary artery calcium scores have been identified as an independent risk factor for future acute co ronary syndromes and correlate with the quantity of coronary atherosclerotic plaque. However, they do not correlate directly with the degree of stenosis. A low score does not exclude a significant coron callie artery stenosis. Risk of future coronary events should be assessed with individual patient risk factors and medical hi story. Consider correlation with risk percentiles using the ARGUELLO (Multi-Ethnic Study of Atheroscleros is) calculator. CAC-DRS Categories: A0: 0, very low risk, consider repeat coronary calcium study every 3-7 years for surveillance. A1: 1-99, mildly increased risk, consider moderate-intensity statin A2: 100-299: moderately increased risk, consider moderate to high-intensity statin + ASA 81mg A3: >300: moderately to severely increased risk, consider high-intensity statin + ASA 81mg Reviewed by: Myron Ortiz MD on 12/31/2023 6:30 PM AKDT Approved by: Myron Ortiz MD on 12/31/2023 6:30 PM AKDT Station ID: [id number]
== END 2023-12-31 16:40 | disposition home or self-care (01) ==
LOC: DI 16:39
PROVIDERS: ATTEND Internal Medicine Cardiovascular Disease
DX: I10 Essential (primary) hypertension (principal); R53.83 Other fatigue; Z82.49 Family history of ischemic heart disease and other diseases of the circulatory system

== ENCOUNTER 2024-01-09 07:40 | Outpatient (CLI) | payer OTHER | END 2024-01-09 07:41 | disposition home or self-care (01) | LOC: DI 07:40 | PROVIDERS: ATTEND Internal Medicine Cardiovascular Disease | DX: R53.83 Other fatigue (principal); I10 Essential (primary) hypertension; Z82.49 Family history of ischemic heart disease and other diseases of the circulatory system; I34.0 Nonrheumatic mitral (valve) insufficiency | CPT/HCPCS: 93307 ==

== ENCOUNTER 2024-01-10 19:40 | Emergency (ER) | payer OTHER ==
[2024-01-10 20:10] VITALS: BP 143/84; O2SAT 95
--- NOTE | 2024-01-10 20:22 | ED Physician Documentation ---
History of Present Illness - Stated complaint Stated Complaint: RT LEG NUMB/PX/BACK PX - Chief complaint Chief Complaint: Neuro - Additonal information Additional information: 63-year-old female with history of hypertension, COPD, hiatal hernia, rheumatoid arthritis presents emergency department for multiple complaints. Patient said that she recently started Humira injection about 5 weeks ago she said a total of 2 they are each spaced out 14 days apart. She said after the first injection she started experience lower back pain, different aches and pains to both knees mostly to the posterior region and then new thigh pain. Patient reports over the last couple days she has noticed that her right thigh is more worse than her left thigh and that she has been having new bruising behind both knees. Patient says that she is a family history of DVTs and this is her main concern. She has no shortness of breath no chest pain she has had no recent international long travel or no recent periods where she has had prolonged decreased activity she says she actually has been starting to recently work out more recently than she normally does. No calf pain no hemoptysis. PD PAST MEDICAL HISTORY - Past Medical History Cardiovascular: Hypertension, Other Respiratory: COPD Neuro: None Endocrine/Autoimmune: None GI: GERD, Hiatal hernia CUSTOMIZER: None : Other HEENT: None Psych: None Musculoskeletal: Rheumatoid arthritis, Other Derm: None - Past Surgical History Past Surgical History: Yes General: Cholecystectomy, Colonoscopy, EGD /CUSTOMIZER: Tubal ligation, Breast reduction HEENT: Other - Present Medications Home Medications: Ambulatory Orders Medication Instructions Recorded Confirmed hydroCHLOROthiazide [Hydrodiuril] 25 mg PO DAILY #30 tablet 04/02/22 10/04/23 Losartan Potassium 25 mg PO DAILY #30 tablet 04/09/22 10/04/23 Acetaminophen [Tylenol] See Rx Instructions .ROUTE .COMPLEX 11/12/22 10/04/23 Cholecalciferol [Vitamin D3] See Rx Instructions .ROUTE .COMPLEX 11/12/22 10/04/23 Magnesium See Rx Instructions .ROUTE .COMPLEX 11/12/22 10/04/23 Methotrexate Inj [Methotrexate] 0.1 ml IM 10/04/23 Nabumetone 500 mg PO DAILY PRN 10/04/23 10/04/23 Albuterol Sulf [Ventolin Hfa 1 - 2 puffs INH Q4HR PRN #1 each 10/05/23 Inhaler] Benzonatate [Tessalon] 100 mg PO TID PRN #40 ea 10/08/23 Famotidine [Pepcid] 20 mg PO DAILY #20 tablet 11/14/23 LORazepam [Ativan] 1 mg PO Q8H PRN #20 tablet 11/14/23 Cyclobenzaprine [Flexeril] 10 mg PO TID PRN 6 Days #15 tablet 01/10/24 - Allergies Allergies/Adverse Reactions: Allergies Allergy/AdvReac Type Severity Reaction Status Date / Time Latex, Natural Rubber Allergy Rash Verified 01/10/24 19:57 - Social History Does the pt smoke?: No Smoking Status: Never smoker Does the pt drink ETOH?: Yes Does the pt have substance abuse?: No - Immunizations Immunizations are current?: No Immunizations: TDAP >10years/unknown - POLST Patient has POLST: No PD ED PE NORMAL - Vitals Vital signs reviewed: Yes - General General: Alert and oriented X 3, No acute distress, Well developed/nourished - Derm Derm: Normal color, Warm and dry, No rash - Extremities Extremities: No deformity, No tenderness to palpate, Normal ROM s pain, No edema, No calf tenderness / cord - Neuro Neuro: Alert and oriented X 3, motor transport inspector 2-12 intact, No motor deficit, No sensory deficit, Normal speech - Psych Psych: Normal mood, Normal affect Results - Vitals Vitals: Vital Signs - 24 hr 01/10/24 01/10/24 19:51 19:57 Temperature 36.1 C L 36.5 C Heart Rate 87 87 Respiratory 17 17 Rate Blood Pressure 143/84 H 143/84 H O2 Saturation 95 95 Oxygen O2 Source Room air - Labs Labs: Laboratory Tests 01/10/24 01/10/24 20:25 20:25 WBC 8.3 RBC 4.47 Hgb 11.9 L Hct 37.3 MCV 83.4 MCH 26.6 L MCHC 31.9 L RDW 13.3 Plt Count 359 MPV 9.2 Neut # (Auto) 4.3 Lymph # (Auto) 2.9 Marshall # (Auto) 0.8 Eos # (Auto) 0.3 Baso # (Auto) 0.1 Absolute Nucleated RBC 0.00 Nucleated RBC % 0.0 Sodium 138 Potassium 3.4 L Chloride 102 Carbon Dioxide 27 Anion Gap 9.0 BUN 13 Creatinine 0.8 Estimated GFR (MDRD) 73 L Glucose 119 H Calcium 9.5 Magnesium 1.9 Total Bilirubin 0.3 AST 15 ALT 15 Alkaline Phosphatase 81 Total Protein 7.0 Albumin 4.0 Globulin 3.0 Albumin/Globulin Ratio 1.3 Lipase 54 PD Medical Decision Making - ED course ED course: Labs are complete for further evaluation of what is causing patient to have these generalized bodyaches as well as what is causing what she describes as numbness to her right thigh. No leukocytosis no anemia no significant electrolyte abnormalities potassium is slightly suppressed at 3.4, GFR 73, no other acute abnormalities or findings.Wells score for myself for DVT is 0 point so I do not believe any further evaluation or investigation looking for DVT is warranted at this point in time. Patient was very reassured by this and is agreeable that this is most likely not a DVT given the multiple complaints that she is experiencing. Patient was at home and that she felt her right side was bigger than her left thigh I am not evaluating this she also reports that she was having some bruising to both posterior knees and I am also not seeing this. She was given muscle relaxers here in the emergency department and a prescription of muscle relaxers was sent to her preferred pharmacy and patient was told to follow-up with her tankman for further evaluation of the believe the symptoms she is experiencing is related to her Humira injections as the symptoms literally started right around the time after she got her first injection and have increased in severity after the second injection. She said that she is already send care message to her tankman for further evaluation and follow-up appointment. Patient was given strict ER return precautions all questions answered she is safe for discharge. Departure - Departure Disposition: 01 Home, Self Care Clinical Impression: Medication side effect Instructions: ED Muscle Aching Prescriptions: Cyclobenzaprine [Flexeril] 10 mg PO TID PRN 6 Days #15 tablet PRN Reason: Spasms Comments: Thank you for trusting us with your care. We have completed labs and I do not believe that you have any acute abnormalities or findings that would require hospitalization at this point in time. I have a very low suspicion that you are experiencing a DVT right now with the symptoms that you are reporting to be. I have started you on a medication called Flexeril also known as cyclobenzaprine is a muscle relaxer you can take up to 3 times a day for muscle spasms and pain. I would also consider adding on Tylenol up to 1000 mg every 8 hours do not exceed 4 g in a 24-hour period to also help with the muscle aches and pains that you are experiencing. Please follow-up with your tankman to see if this is a side effect of Humira or if they have any further recommendations or gu idance for you. Please come back to the emergency department if you are starting to develop any chest pain, shortness of breath, 1 calf that hurts more than the other with swelling, or any other concerning emergent symptoms. Wishing you speedy recovery. Forms: PCP List Discharge Date/Time: 01/10/24 21:24
[2024-01-10 20:32] LABS: BASOPHILS # (AUTO) 0.1 10^3/uL (0.0-0.1); BASOPHILS % (AUTO) 0.8 %; EOSINOPHILS # (AUTO) 0.3 10^3/uL (0.0-0.7); EOSINOPHILS % (AUTO) 3.4 %; HCT - HEMATOCRIT 37.3 % (37.0-47.0); HGB - HEMOGLOBIN 11.9 g/dL (12.0-16.0); LYMPHOCYTES # (AUTO) 2.9 10^3/uL (1.5-3.5); LYMPHOCYTES % (AUTO) 34.6 %; MEAN CORPUSCULAR HEMOGLOBIN 26.6 pg (27.0-31.0); MEAN CORPUSCULAR HGB CONC 31.9 g/dL (32.0-36.0); MEAN CORPUSCULAR VOLUME 83.4 fL (81.0-99.0); MEAN PLATELET VOLUME 9.2 fL (7.9-10.8); MONOCYTES # (AUTO) 0.8 10^3/uL (0.0-1.0); NEUTROPHILS # (AUTO) 4.3 10^3/uL (1.5-6.6); PLT - PLATELET COUNT 359 10^3/uL (130-450); RED BLOOD COUNT 4.47 10^6/uL (4.20-5.40); RED CELL DISTRIBUTION WIDTH 13.3 % (12.0-15.0); WHITE BLOOD COUNT 8.3 x10^3/uL (4.8-10.8)
[2024-01-10 20:44] LABS: ALBUMIN/GLOBULIN RATIO 1.3 (1.0-2.2); BILIRUBIN,TOTAL 0.3 mg/dL (0.2-1.0); CALCIUM 9.5 mg/dL (8.5-10.3); CREATININE 0.8 mg/dL (0.6-1.3); MAGNESIUM 1.9 mg/dL (1.7-2.3); POTASSIUM 3.4 mmol/L (3.5-4.5)
[2024-01-10] MEDS: CYCLOBENZAPRINE 10 MG TABLET PO STA (21:01)
== END 2024-01-10 21:24 | disposition home or self-care (01) ==
LOC: ED 19:40
DX: T88.7XXA Unspecified adverse effect of drug or medicament, initial encounter (principal); I10 Essential (primary) hypertension; M06.9 Rheumatoid arthritis, unspecified
CPT/HCPCS: 36415; 80053; 83690; 83735; 85025; 99283; 99284; A9270

== ENCOUNTER 2024-02-03 10:31 | Outpatient (CLI) | payer OTHER ==
--- NOTE | 2024-02-04 09:28 | Ultrasound Report ---
LIMITED ULTRASOUND OF LEFT BREAST: 02/03/2024 CLINICAL: Palpable left breast lump. Comparison is made to exams dated: 02/03/2024 mammogram, 12/19/2023 mammogram, 12/07/2020 mammogram, 11/22/2019 mamm[address] - [facility], and 11/20/2018 mammogram - [facility]. Color flow and real-time ultrasound of the left breast 5 o'clock region were performed. Rivero scale images of the real-time examination were reviewed. There is a 1.3 cm x 0.5 cm x 1.2 cm wider than tall oval cyst within the skin of the left breast at 5 o'clock 5 cm from the nipple. This oval cyst is hypoechoic with a well-defined boundary, internal e choes, and posterior acoustic enhancement. This correlates with mammography findings. Color flow im aging demonstrates that there is no vascularity present. IMPRESSION: BENIGN There is no sonographic evidence of malignancy. The 1.3 cm x 0.5 cm x 1.2 cm wider than tall oval cyst within the skin of the left breast is benign. Recommend clinical surveillance and follow up screening mammogram in 12 months. Findings and recommendations were conveyed to the patient during today's evaluation. This exam was interpreted at Station ID: [id number]. Electronically Signed By: Vasquez Barnett M.D. aty/:02/03/2024 12:23:31 Ultrasound BI-RADS: 2 Benign BI-RADS CATEGORY: (2) - 2 RECOMMENDATION: (ANNUAL) - Recommend routine annual screening mammography. [id number] 1 year screening LATERALITY: (B)
--- NOTE | 2024-02-04 09:28 | Mammography Report ---
UNILATERAL LEFT DIGITAL DIAGNOSTIC MAMMOGRAM 3D/2D WITH SPOT COMPRESSION: 02/03/2024 CLINICAL: Patient returns today to evaluate a focal asymmetry in the left breast. Comparison is made to exams dated: 12/19/2023 mammogram, 12/07/2020 mammogram, 11/22/2019 mammogram - [facility], and 11/20/2018 mammogram - [facility]. There are scattered areas of fibroglandular density in the left breast (category b / 25%-50% glandula r tissue). Redemonstration of previously described round low density focal asymmetry in the left breast at 5 o'c lock anterior depth. This is seen in additional views. No other significant masses or calcifications are seen in the breast. IMPRESSION: INCOMPLETE: NEEDS ADDITIONAL IMAGING EVALUATION The round low density focal asymmetry in the left breast resembles a skin lesion and is indeterminate . An ultrasound is recommended for further evaluation and is scheduled to immediately follow this ex amination. Based on the Tyrer Cuzick model (a risk assessment model) the patient's lifetime risk is 6.4% and her 10 year risk is 2.7%. According to the ACR, ACS, and NCCN guidelines, an annual breast MRI exam danilo g with mammogram is recommended if the patient's lifetime risk is 20% or greater. This exam was interpreted at Station ID: [id number]. NOTE: For mammograms, a report in lay terms will be sent to the patient. Approximately 15% of breast malignancies will not be visualized mammographically. In the management of a palpable breast mass, a negative mammogram must not discourage biopsy of a clinically suspicious lesion. Electronically Signed By: Vasquez Barnett M.D. aty/:02/03/2024 12:19:46 ACR BI-RADS Category 0: Incomplete 3340F PARENCHYMAL PATTERN: (A) - The breast(s) demonstrate(s) scattered fibroglandular densities. BI-RADS CATEGORY: (0) - 0 Ultrasound [id number] Immediate follow-up LATERALITY: (L)
== END 2024-02-03 10:32 | disposition home or self-care (01) ==
LOC: DI 10:31
PROVIDERS: ATTEND Family Medicine
DX: N60.02 Solitary cyst of left breast (principal); R92.322 Mammographic fibroglandular density, left breast

== ENCOUNTER 2024-02-17 07:27 | Outpatient (CLI) | payer OTHER ==
--- NOTE | 2024-02-17 08:19 | CARDIAC PROCEDURE NOTE ---
Stress Test Report Service Date: 02/17/24 Service Time: 08:00 Ordering Provider: Edmundo Telles MD Indication for Test: Cardiac risk stratification in patient with some family history of CAD and a recent coronary artery calcium score of zero. Significant Medical History: Janet is referred for a ETT today as part of a workup for occult coronary artery disease, in the setting of losing her 54-year-old a few months back due to presumed sudden cardiac . She has some personal ASCVD risk factors as elaborated below, though her functional status appears to be relatively stable, with primary concern for fatigue. Prior workup has included an echocardiogram performed in December of this year that showed normal right and left ventricular systolic function without evidence of LVH and with mild primary mitral regurgitation. She also had a coronary artery calcium study performed here on 12/31/2023 that showed a coronary calcium score of 0. Her only stated concern has been some difficulty in obtaining stable blood pressures. When her blood pressure is well-controlled she sees readings ranging around 130/75, however at times it is significantly higher than that, perhaps correlating with worsening of her rheumatoid arthritis pain. Notably, she takes her losartan and HCTZ at bedtime. 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 She feels that her stamina is intact and she does not experience chest discomfort. Cardiac Risk Factors: Positive for hypertension (treated for ~5 yrs with variable control), hyperlipidemia (untreated, with lipids in 01/13 that included TChol 256, LDLc 169, HDLc 43, TG 222) and modest family history of CAD in both paternal grandparents (she notes that she never knew her biological father and her mother was murdered at age 26, when she was very young); negative for diabetes and tobacco smoking history. Other risk-enhancing factors include history of rheumatoid arthritis (recently started on Humira) and treatment with BiPAP for about 4 years for obstructive sleep apnea. Type of Stress Test: Exercise Treadmill Test (ETT) Procedure: -Exercise Treadmill Test- After signing informed consent, the patient performed treadmill exercise using a Klever protocol. The patient exercised for exactly 6 minutes and achieved a peak heart rate of 171 (107 percent predicted maximum heart rate for age), and an estimated workload of 7.1 METS. The test was terminated due to fatigue/shortness of breath. Resting heart rate: 77 Peak heart rate: 171 Normal response to exercise. Resting BP: 141/86 Peak BP: 226/87 Elevated resting systolic BP with hypertensive BP response to exercise. Room air oxygen saturation during exercise ranged between 94-98%. Rhythm during exercise: Sinus rhythm throughout, without ectopy. Symptoms: She described mild leg and back discomfort, but no chest pressure/discomfort/pain. EKG at rest showed normal sinus rhythm with low precordial lead QRS voltages and left atrial abnormality; otherwise normal. EKG at peak stress showed no ischemia by EKG criteria. In Recovery HR rapidly/normally returned to resting level, with slower decline in BP (HR was 78, BP 154/90 at 7:00). No imaging was ordered with this stress test. IAntonio MD, was present throughout this treadmill stress study and supervised it in its entirety. Summary: 1) Exercise tolerance was reduced for age and sex, as evidenced by CARTER of 10%. 2) Normal resting EKG. 3) Adequate level of exercise was achieved on this treadmill stress test. 4) Abnormal hypertensive BP response to exercise. 5) No ischemic changes by EKG criteria were seen at peak stress. 6) No imaging was ordered with this test. Conclusions and Recommendations: 1) The patient exercised to a diagnostic workload, with a hypertensive BP response but with no symptoms or EKG evidence of inducible ischemia. 2) She was encouraged to remain on CPAP and to continue monitoring blood pressur e in hopes of seeing overall improved control. She has been taking hydrochlorothiazide and losartan at bedtime for no particular reason and we discussed that it may be more effective for daytime blood pressure control if taken in the morning. Therefore she will adjust the time of day to morning administration.
== END 2024-02-17 07:28 | disposition home or self-care (01) ==
LOC: DI 07:27
PROVIDERS: ATTEND Internal Medicine Cardiovascular Disease
DX: I10 Essential (primary) hypertension (principal); R53.83 Other fatigue; Z82.49 Family history of ischemic heart disease and other diseases of the circulatory system; E78.5 Hyperlipidemia, unspecified; M06.9 Rheumatoid arthritis, unspecified; G47.33 Obstructive sleep apnea (adult) (pediatric)
CPT/HCPCS: 93017

== ENCOUNTER 2024-03-11 15:27 | Outpatient (CLI) | payer OTHER ==
--- NOTE | 2024-03-11 16:30 | Sleep Patient Instructions ---
Sleep Center Visit Summary - Patient Visit Information Reason for Visit: Annual follow-up - Patient Instructions Additional Instructions: You will continue with CPAP therapy with pressure set at 8 cmH2O. A supply prescription will be updated with your DME. We encourage you to continue to try to lose weight. Please follow up with the sleep care office in 1 year. - Clinic Information Contact: [facility] [address] [place] [address] [email or web address] T: [phone]
--- NOTE | 2024-03-11 16:33 | SLEEP CARE CONSULTATION ---
Information from patient questionnaire entered by Lianna Moore. I have reviewed and concur with the information entered by Lianna Moore. This document represents the service I personally performed and the decisions made by me, Jaqueline Camacho ARNP. History of Present Illness Service Date and Time: 03/11/2024 1527 Previous diagnosis: Moderate, Obstructive Sleep Apnea-Hypopnea Syndrome AHI: 25.4 Reason for follow up: annual (LAST SEEN 10/2022) Equipment type: CPAP (VICENTE Dreamstation re-certified) Equipment obtained from: [employer] (getting supplies as needed) Mask style: Nasal Backup mask available: Yes Last cushion change: last week Prior sleep studies: Yes Year and Where: [facility] additional information: JULIET LAGUNAS was diagnosed to have moderate, AHI 25.4, obstructive sleep apnea- hypopnea syndrome and returned today for CPAP therapy annual follow-up. Sleep Study - Results Prior sleep studies: Yes Year and Where: 2015 [facility] CPAP Compliance Data - Data Reviewed with Patient Average duration of nightly device use: 7 HRS 27 MINS 7SECS Compliance rate %: 86.8 (03/10/23-03/08/24; 337/365 days used) Current pressure setting (cmH2O): 8 Average residual AHI: 3.7 Central apnea: 0.1 Obstructive apnea: 0.6 Hypopnea: 3 Average large leak: 8 mins 26 mins Subjective Missed days of use due to: reports: travel ( in hospital [place]) Patient concerns: reports: air blowing in eyes. denies: aerophagia, mask discomfort, mask leak noise, condensation in mask/hose, nasal congestion, dry mouth, nose, throat, epistaxis Observed to snore while using device: No Current pressure setting perceived as: comfortable On therapy, patient: reports: sleeping better, awakening more refreshed, being more awake and alert during the day, more rested overall. denies: drowsiness while driving Initial [place] Sleepiness Scale score: 14 ([place] 2019) Current [place] Sleepiness Scale score: 10 (03/11/24) Allergies and Home Medications Known drug allergies: Yes (as listed) Drug allergies reviewed: Yes Home medication list reviewed: Yes (Humira injections, 1 dose every 14 days) Allergy and home medication list: Allergies Latex, Natural Rubber Allergy (Verified 03/10/24 08:21) Rash Review of Systems Review of systems same as previous: No (LAMINECTOMY 04/2023) Physical Exam Vital signs obtained and entered by: LIANNA Kirkpatrick MA Blood Pressure: 150/79 (RIGHT ARM) Cuff size: long Heart Rate: 73 O2 Saturation: 96 Height: 5 ft 9 in Weight: 269 lb Weight change since last visit: 7 lb loss Body Mass Index: 39.7 BMI Classification: Obese Impression and Plan 1. Obstructive Sleep Apnea-Hypopnea Syndrome, moderte, with good treatment compliance and good apnea control. On CPAP therapy, the patient has better sleep quality and is more rested overall. Patient has significant improvement of their sleep apnea and is satisfied with current CPAP therapy. Patient denies problems with oral dryness, nasal congestion, epistaxis, skin irritation or aerophagia. Patient's apnea severity and rationale for treatment to reduce apnea, improve sleep quality and reduce cardiovascular and cerebrovascular events was reviewed. I also reviewed the benefit of consistent device use of CPAP for gastric reflux, depression/anxiety. 2. Obesity, unspecified. Currently patients BMI is 39.7. Obesity increases the risk of apnea, CPAP pressure requirements and overall health risks especially cardiovascular and diabetes. Thus patient is advised to lose weight. * Continue CPAP pressure at 8 cmH2O * Update supply prescription * Notify me if snoring with mask or feeling that the pressure is too much or too little * Attempt to lose weight * Call this office if any problems using CPAP * Return for follow up in 12 months, or sooner if concerns arise Counseling Topics: Spare mask, Weight loss health impact Prescriptions: Device supplies Follow up with Sleep Care in: 1 year Visit Type: In Office Time Spent with Patient (minutes): 20 Provider Statement: I spent 100% of the Face to Face Visit with the patient with greater than 50% spent counseling the patient and coordination of care.
[2024-03-11 16:37] VITALS: BP 150/79; O2SAT 96
== END 2024-03-11 15:28 | disposition home or self-care (01) ==
LOC: SC 15:27
PROVIDERS: ATTEND Nurse Practitioner Family
DX: G47.33 Obstructive sleep apnea (adult) (pediatric) (principal); E66.9 Obesity, unspecified; Z68.39 Body mass index [BMI] 39.0-39.9, adult
CPT/HCPCS: 99212; 99213

== ENCOUNTER 2024-04-10 10:45 | Outpatient (CLI) | payer OTHER ==
[2024-04-10 11:00] LABS: BASOPHILS # (AUTO) 0.1 10^3/uL (0.0-0.1); BASOPHILS % (AUTO) 1.2 %; EOSINOPHILS # (AUTO) 0.3 10^3/uL (0.0-0.7); EOSINOPHILS % (AUTO) 5.3 %; HCT - HEMATOCRIT 38.1 % (37.0-47.0); HGB - HEMOGLOBIN 12.6 g/dL (12.0-16.0); LYMPHOCYTES # (AUTO) 1.9 10^3/uL (1.5-3.5); LYMPHOCYTES % (AUTO) 31.3 %; MEAN CORPUSCULAR HEMOGLOBIN 26.4 pg (27.0-31.0); MEAN CORPUSCULAR HGB CONC 33.1 g/dL (32.0-36.0); MEAN CORPUSCULAR VOLUME 79.9 fL (81.0-99.0); MONOCYTES # (AUTO) 0.6 10^3/uL (0.0-1.0); MONOCYTES % (AUTO) 9.7 %; NEUTROPHILS # (AUTO) 3.2 10^3/uL (1.5-6.6); NEUTROPHILS % (AUTO) 52.3 %; PLT - PLATELET COUNT 310 10^3/uL (130-450); RED BLOOD COUNT 4.77 10^6/uL (4.20-5.40); RED CELL DISTRIBUTION WIDTH 12.9 % (12.0-15.0); WHITE BLOOD COUNT 6.1 x10^3/uL (4.8-10.8)
[2024-04-10 11:33] LABS: THYROID STIMULATING HORMONE 2.48 uIU/mL (0.34-5.60)
[2024-04-10 11:38] LABS: FERRITIN 64.3 ng/mL (11.0-306.8)
[2024-04-10 12:31] LABS: ESTIMATED AVERAGE GLUCOSE 128 mg/dL (70-100); HEMOGLOBIN A1c% 6.1 % (4.27-6.07)
== END 2024-04-10 10:46 | disposition home or self-care (01) ==
LOC: LAB 10:45
PROVIDERS: ATTEND Nurse Practitioner
DX: R53.83 Other fatigue (principal)
CPT/HCPCS: 36415; 82728; 83036; 84425; 84439; 84443; 85025

== ENCOUNTER 2024-04-22 20:48 | Emergency (ER) | payer OTHER ==
--- NOTE | 2024-04-22 21:06 | ED Physician Documentation ---
PD HPI SKIN - Stated complaint Stated Complaint: LT BREAST PX - Chief complaint Chief Complaint: Wound - History obtained from History obtained from: Patient - Additional information Additional information: She had a cyst on her left breast for about a year and a half but over the last couple of days it has become inflamed and burst today. Chills but no fevers. Last mammogram was clear. PD PAST MEDICAL HISTORY - Past Medical History Past Medical History: Yes Cardiovascular: Hypertension, Other Respiratory: COPD Neuro: None Endocrine/Autoimmune: None GI: GERD, Hiatal hernia I&C TECH: None : Other HEENT: None Psych: None Musculoskeletal: Rheumatoid arthritis, Other Derm: None - Past Surgical History Past Surgical History: Yes General: Cholecystectomy, Colonoscopy, EGD /I&C TECH: Tubal ligation, Breast reduction HEENT: Other - Present Medications Home Medications: Ambulatory Orders Medication Instructions Recorded Confirmed hydroCHLOROthiazide [Hydrodiuril] 25 mg PO DAILY #30 tablet 04/02/22 03/11/24 Losartan Potassium 25 mg PO DAILY #30 tablet 04/09/22 03/11/24 Acetaminophen [Tylenol] See Rx Instructions .ROUTE .COMPLEX 11/12/22 03/11/24 Cholecalciferol [Vitamin D3] See Rx Instructions .ROUTE .COMPLEX 11/12/22 03/11/24 Magnesium See Rx Instructions .ROUTE .COMPLEX 11/12/22 03/11/24 Methotrexate Inj [Methotrexate] See Rx Instructions .ROUTE .COMPLEX 10/04/23 03/11/24 Nabumetone 500 mg PO DAILY PRN 10/04/23 03/11/24 Albuterol Sulf [Ventolin Hfa 1 - 2 puffs INH Q4HR PRN #1 each 10/05/23 03/11/24 Inhaler] Benzonatate [Tessalon] 100 mg PO TID PRN #40 ea 10/08/23 03/11/24 Famotidine [Pepcid] 20 mg PO DAILY #20 tablet 11/14/23 03/11/24 LORazepam [Ativan] 1 mg PO Q8H PRN #20 tablet 11/14/23 03/11/24 Cyclobenzaprine [Flexeril] 10 mg PO TID PRN 6 Days #15 tablet 01/10/24 03/11/24 Adalimumab [Humira] See Rx Instructions .ROUTE .COMPLEX 03/11/24 03/11/24 cephALEXin [Keflex] 500 mg PO Q6H #28 cap 04/22/24 - Allergies Allergies/Adverse Reactions: Allergies Allergy/AdvReac Type Severity Reaction Status Date / Time Latex, Natural Rubber Allergy Rash Verified 04/22/24 20:58 - Social History Does the pt smoke?: No Smoking Status: Never smoker Does the pt drink ETOH?: Yes Does the pt have substance abuse?: No - Immunizations Immunizations are current?: No Immunizations: TDAP >10years/unknown - POLST Patient has POLST: No PD ED PE NORMAL - Vitals Vital signs reviewed: Yes - General General: Alert and oriented X 3 - Extremities Extremities: Other (Exam and procedures done with RN Lin present and chaperoning. She has a pointed cyst abscess at 6:00 on the left breast with mild overlying cellulitis.) - Neuro Neuro: Alert and oriented X 3, Normal speech Results - Vitals Vitals: Vital Signs - 24 hr 04/22/24 20:58 Temperature 36.5 C Heart Rate 90 Respiratory 16 Rate Blood Pressure 155/82 H O2 Saturation 97 Oxygen O2 Source Room air Procedures - Abscess I&D (location) L breast 6o'clock Preparation: Betadine, Lidocaine 1% Incision: Incised with scalpel, Purulent drainage, Loculations broken, Packed (with 1/2 inch iodoform), Culture obtained Other: Pt tolerated well, Dressing applied, Antibiotic prescribed Departure - Departure Disposition: 01 Home, Self Care Clinical Impression: Breast abscess Condition: Good Record reviewed to determine appropriate education?: Yes Instructions: ED Abscess IandD Prescriptions: cephALEXin [Keflex] 500 mg PO Q6H #28 cap Comments: I sent your prescription electronically to [facility] [place]. It is okay to shower and then you can keep it covered with a pack of gauze or maxi pad inside your bra. The packing should come out in approximately 48 hours and you can take it out yourself will return if you are uncomfortable doing that. We are performing a wound culture, the results should be done in 48-72 hours. If antibiotic change is necessary we will call you. Return if worse in the meantime, especially if you develop increased pain, fevers, cannot keep down the medication. Otherwise follow-up with your physician in approximately 2-3 days. Forms: PCP List
[2024-04-22 21:10] VITALS: BP 155/82; O2SAT 97
[2024-04-22] MEDS: CEPHALEXIN 250 MG Prepack 8 CAP BOTTLE PO STA (21:27)
== END 2024-04-22 21:33 | disposition home or self-care (01) ==
LOC: ED 20:48
DX: N61.1 Abscess of the breast and nipple (principal); I10 Essential (primary) hypertension; J44.9 Chronic obstructive pulmonary disease, unspecified; Z79.899 Other long term (current) drug therapy
CPT/HCPCS: 10061; 87070; 87205

== ENCOUNTER 2024-08-25 06:08 | Observation (INO) ==
[2024-08-25] MEDS ORDERED: TRANEXAMIC ACID 1,000 MG in SODIUM CHLORIDE 0.9% 100ML 100 ML IV PRN (06:23)
[2024-08-25] MEDS ORDERED: BUPIVACAINE 0.25% PF 30 ML VIAL ONE (06:52)
[2024-08-25] MEDS ORDERED: VANCOMYCIN 1 GM VIAL ONE (06:52)
[2024-08-25] MEDS: CELECOXIB 100 MG CAPSULE PO ONE (06:54)
[2024-08-25] MEDS ORDERED: PROPOFOL 500 MG/50 ML 500 MG/50 ML VIAL ONE ×4 (07:12→11:09)
[2024-08-25] MEDS ORDERED: BUPIVACAINE 0.5% PF 10 ML VIAL ONE (07:13)
[2024-08-25] MEDS ORDERED: MIDAZOLAM 2 MG/2 ML VIAL ONE (07:13)
[2024-08-25] MEDS ORDERED: fentaNYL 100 MCG/2 ML VIAL ONE ×2 (07:13→10:29)
[2024-08-25] MEDS ORDERED: PHENYLEPHRINE 10 MG/ML VIAL ONE (07:23)
--- NOTE | 2024-08-25 07:31 | ANESTHESIA PROCEDURE NOTE ---
Pre-Anesthesia VS, & Labs Diagnosis Surgical Diagnosis:: left hip osteoarthritis Procedure Procedure: Left total hip arthroplasty Vitals Vital Signs: Temp Pulse Resp BP Pulse Ox 36.2 C L 83 19 147/96 H 97 08/25/24 06:43 08/25/24 06:43 08/25/24 06:43 08/25/24 06:43 08/25/24 06:43 Height (in): 5 ft 8 in Weight (kg): 126 kg Body Mass Index: 42.2 BMI Classification: Morbidly Obese NPO NPO: >8 hours Is Patient ?: Not Applicable Meds/Allgy Home Medications Ambulatory Orders Medication Instructions Recorded Confirmed acetaminophen 500 mg tablet See Rx Instructions .Route .COMPLEX 11/12/22 08/16/24 cholecalciferol (vitamin D3) 125 See Rx Instructions .Route .COMPLEX 11/12/22 08/25/24 mcg (5,000 unit) capsule albuterol sulfate 90 mcg/actuation 1 - 2 puff inhalation Q4HR PRN 10/05/23 08/16/24 aerosol inhaler (Ventolin HFA) Shortness Of Air/Wheezing #1 ea lorazepam 1 mg tablet 1 mg PO Q8H PRN Alcohol Withdrawal 11/14/23 08/16/24 #20 tabs adalimumab 40 mg/0.8 mL See Rx Instructions .Route .COMPLEX 03/11/24 08/16/24 subcutaneous syringe kit (Humira) fexofenadine 180 mg tablet 180 mg PO QDAY PRN allergy symptoms 08/02/24 08/25/24 losartan 50 mg-hydrochlorothiazide 1 tab PO QDAY 08/02/24 08/25/24 12.5 mg tablet meloxicam 15 mg tablet 15 mg PO QDAY 08/02/24 08/16/24 multivitamin (Daily Multi-Vitamin 1 tab PO DAILY 08/16/24 08/25/24 tablet) acetaminophen 325 mg tablet 975 mg (3 x 325 mg) PO Q8H #120 08/17/24 08/17/24 (Tylenol) tabs aspirin 81 mg chewable tablet 81 mg PO BID #84 tabs 08/17/24 08/17/24 docusate sodium 100 mg capsule 200 mg (2 x 100 mg) PO BID #40 caps 08/17/24 08/17/24 (Colace) ondansetron 4 mg disintegrating 4 mg PO Q8H PRN nausea and 08/17/24 08/17/24 tablet vomiting #12 tabs oxycodone 5 mg tablet 5 mg PO Q4H PRN pain #40 tabs 08/17/24 08/17/24 losartan 50 mg tablet 50 mg PO DAILY 08/25/24 08/25/24 Allergies Allergies Allergy/AdvReac Type Severity Reaction Status Date / Time Latex, Natural Rubber Allergy Rash Verified 08/25/24 07:05 PFSH Medical History Medical History (Updated 08/25/24 @ 07:29 by Roseanne Chaparro CRNA) Osteoarthritis Sleep apnea treated with continuous positive airway pressure (CPAP) GERD (gastroesophageal reflux disease) Rheumatoid arthritis Surgical History Surgical History (Updated 08/25/24 @ 07:29 by Roseanne Chaparro CRNA) H/O laminectomy Hx of bilateral breast reduction surgery H/O nasal septoplasty History of colonoscopy Social History Social History (Updated 08/16/24 @ 12:00 by Ade Mcguire RN) Smoking Status: Never smoker Do you dip or chew tobacco?: No Living arrangement: At home Relationship: Do you feel safe in your home environment?: Yes Suffered physical, verbal, emotional, or financial abuse?: No History of Abuse: No ETOH Use: Frequency: Occasional Substance Use: denies use POLST Patient has POLST: No Anesthesia Exam (Expanded) Exam General: Alert, Oriented x3 and Cooperative Dental: WNL Mouth Openin Fingerbreadth Neck Mobility: Normal Mallampati classification: III Thyromental Distance: 4-6 cm Mental/Cognitive Status: Alert/Oriented X3 and Normal for patient Plan Plan Anesthesia Type: Spinal (General as back up) Consent for Procedure(s) Verified and Reviewed: Yes Code Status: Attempt Resuscitation ASA Classification ASA classification: 3-Severe systemic disease Is this case an emergency?: No
[2024-08-25] MEDS ORDERED: TRANEXAMIC ACID 1,000 MG/10 ML VIAL ONE ×2 (08:13→11:31)
[2024-08-25] MEDS ORDERED: ACETAMINOPHEN 1,000 MG/100 ML 1,000 MG/100 ML BAG IV ONE (09:09)
[2024-08-25] MEDS ORDERED: PROPOFOL 200 MG/20 ML VIAL IVP ONE (11:13)
[2024-08-25] MEDS ORDERED: HYDROmorphone 1 MG/ML CARPUJECT ONE (11:34)
[2024-08-25] MEDS ORDERED: NALOXONE 0.4 MG/ML VIAL IVP PRN (11:41)
[2024-08-25] MEDS ORDERED: MORPHINE 2 MG/ML CARPUJECT IVP PRN (11:41)
[2024-08-25] MEDS ORDERED: HYDROmorphone 0.5 MG/0.5 ML SYRINGE IVP PRN (11:41)
[2024-08-25] MEDS ORDERED: fentaNYL 100 MCG/2 ML VIAL IVP PRN (11:41)
[2024-08-25] MEDS ORDERED: ATROPINE ABBOJECT 1 MG/10 ML SYRINGE IVP PRN (11:41)
[2024-08-25] MEDS ORDERED: fentaNYL 250 MCG/5 ML VIAL IVP PRN (12:06)
[2024-08-25] MEDS: LACTATED RINGERS 1,000 ML IV SCH (12:08)
--- NOTE | 2024-08-25 12:18 | OPERATIVE REPORT ---
Operative Report General Procedure Data: Operation Date: 08/25/24 07:30 Proposed Procedures p Left Total Hip Arthroplasty(Left) - Davon Monet MD Actual Procedures p Left Total Hip Arthroplasty(Left) - Davon Monet MD Pre-Op Diagnosis: Left hip osteoarthritis Anesthesia Type Spinal Case Staff Anesthesia Provider: Roseanne Chaparro Anesthesia Provider: Jacqui Almazan Assisting Provider: Rona Frazier Assisting Provider: Valentin Jacobs Assisting Provider: Hanna Tse Rep: Kenny Bowling (cotto and nephew). Case Times Into Recovery: 08/25/24 12:00 Procedure Start: 08/25/24 08:26 Procedure End: 08/25/24 11:57 Time out: 08/25/24 08:23 Implants FEM HEAD OXINIUM 09/04 TAPER Pre-Op Diagnosis: Left Hip Osteoarthritis Post Op Diagnosis: CB Procedure Note Estimated Blood Loss (ml): 200 Other Other Information/Narrative: Procedure Date: 08/25/24 Planned Procedure: LEFT Total Hip Arthroplasty Pre-Op Diagnosis: LEFT Hip Osteoarthritis Procedure Performed: LEFT Total Hip Arthroplasty Post Op Diagnosis: LEFT Hip Osteoarthritis Primary Surgeon: Davon Monet MD Secondary Surgeon: Valentin Jacobs MD, Hanna Morejon DO PAC Physician Svp Operations was used throughout the entirety of the case. They assisted with room set up, patient positioning, draping, retraction, reduction, fixation and closure. They were essential for the success of the case. Anesthesia Technique: Spinal Estimated Blood Loss (mL): 200 Urine Output: NA Drains: No lines, drains or airways were recorded for this episode. Implants: [employer]hew R3 Press-Fit Acetabular Cup Size 52mm Cotto [employer] Nephew 52mm x 36mm 20 degree liner Cotto [employer] Nephew Antibiotic STD Polar Stem Size 1 Cotto [employer] Nephew 36 mm Oxinium +4 femoral head Indications: History, physical exam and imaging consistent with hip osteoarthritis that has failed non-operative treatments. They are now interested in pursuing surgical management with a total hip arthroplasty. The risks, benefits, and alternatives were discussed. Risks include pain, bleeding, infection, damage to nearby structures and cartilage, lack of symptom relief, need for further surgery, hip stiffness, fracture, DVT, PE, myocardial infarction, stroke, and . The patient had a good understanding and all questions were answered. Written consent was obtained. Narrative: The patient was brought to the operating room and were given a preoperative antibiotic and 1 gram of TXA preoperatively. They were then placed in the lateral decubitus position with the operative hip facing superiorly. The patient was secured in the lateral decubitus position using a pegboard with 2 post securing the torso and 2 post securing the pelvis. The hip and lower extremity was sterily prepped and draped in the normal sterile fashion. A surgical timeout was performed by the entire operating room team and all were in agreement. A longitudinal incision was made about the lateral operative hip beginning at the vastus lateralis ridge of the proximal femur and extending it proximally approximately 3 fingerbreadths above the trochanter. The subcutaneous tissue and fascia zita were split in line with the incision. The bursae was taken down with bovie. This allowed us to identify the piriformis and short external rotators. These tendons were taken down with bovie and tagged with suture. The posterior capsule was then visible and this was taken down with bovie on bone. The femoral head was dislocated with flexion, adduction and internal rotation. An osteotomy was done at the femoral neck using an osteotomy guide. Retractors were placed behind the femoral neck to protect the soft tissues from the oscillating saw. The proximal femur was retracted. Two acetabular retractors were placed with one anteriorly against bone to reduce any soft tissue impingement to the femoral nerve. The second retractor was placed more posteriorly directly against bone and preventing any impingement against the sciatic nerve. The acetabulum was prepared with a large curette. Medialization of the acetabulum was performed with a small acetabular reamer and then widening was done up to a 52 reamer with the reamer placed in approximately 20 degrees of anteversion and 40 degrees of abduction. A trial acetabular component was inserted with a good fit. A permanent 52 mm R3 acetabular 3-hole component was then impacted in 40 degrees of abduction and approximately 20 degrees of anteversion. This had good fixation to push and pull rotation. The stability of the acetabular cup was very good. A trial acetabular liner was inserted into the cup. The femoral canal was opened with a box osteotome, starting reamers and then serial broaches. Broaching was carried out to a standard 1. Good fit and stability to the 1 stem was achieved. Trial reductions was performed. The hip easily dislocation with flexion and internal rotation. The trials were removed and the acetabular cup was placed with increased anteversion. The stability was again trialed and it was improved however it still dislocated in an unacceptable position. We then decided to trial the 20 degree liner. Hip motion was very good and the hip was stable to dislocation maneuvers. The trial components were removed. A permanent acetabular liner was impacted into the acetabular cup. The femoral stem was then impacted into place. The femoral trial head was placed and stability was checked. A 36 mm +4mm head was impacted onto the trunnion. The hip was reduced which had good length length tension and stability with dislocation removers. Three-minute lavage with dilute Betadine was performed. One gram of Vancomyocin was placed within the joint. The hip external rotators were repaired at the myotendinous junction with #1 strata fix. The fascia zita was closed with a #1 strata fix. The subcutaneous tissue was closed with a 2-0 Vicryl. The skin was closed with a 3- 0 Monocryl subcuticular closure and Dermabond. After the Dermabond had hardened, a silver impregnated dressing was applied. The patient tolerated the procedure well and transferred to the recovery room in a stable condition. All counts were correct. An iliacus block was performed by anesthesia within the operating room. Plan: Post operative xrays of the hip. Weightbearing as tolerated on extremity. Continue antibiotics while still in the hospital. Advance diet as tolerated. Physical and Occupational therapy will assess the patient before discharge. Posterior hip precautions. DVT prophylaxis is ASA daily for 6 w eeks. Follow-up in 2 weeks for wound check and suture removal. Physical therapy consult placed. Davon Monet MD
[2024-08-25] MEDS ORDERED: ALBUTEROL NEB 2.5 MG/3 ML INH PRN (12:48)
[2024-08-25] MEDS ORDERED: ONDANSETRON 4 MG/2 ML VIAL ONE (12:48)
[2024-08-25] MEDS: ONDANSETRON 4 MG/2 ML VIAL IVP PRN ×2 (12:52→17:49)
[2024-08-25] MEDS: NS W/20 MEQ KCL 1,000 ML IV SCH (13:25)
[2024-08-25] MEDS: ACETAMINOPHEN 500 MG TABLET PO SCH (13:25)
[2024-08-25] MEDS: ceFAZolin (2G) 2 GM in SODIUM CHLORIDE 0.9% MINIBAG 100 ML IV SCH (13:25)
--- NOTE | 2024-08-25 15:24 | XRAY Report ---
XR Pelvis 1-2V HISTORY: 64 years of age, post operative imaging TECHNIQUE: XR Pelvis 1-2V COMPARISON: 08/20/2024. FINDINGS/IMPRESSION: Interval status post left hip hemiarthroplasty, in near-anatomic alignment. No hardware complication. Moderate degenerative changes of the right hip. Reviewed by: Negrita Puga MD on 08/25/2024 3:23 PM PST Approved by: Negrita Puga MD on 08/25/2024 3:23 PM PST Station ID: [id number]
[2024-08-25] MEDS: ACETAMINOPHEN 1,000 MG/100 ML 1,000 MG/100 ML BAG IV ONE (15:31)
[2024-08-25] MEDS: dexAMETHasone 4 MG TABLET PO ONE (15:32)
--- NOTE | 2024-08-25 16:02 | ANESTHESIA POST OP EVALUATION ---
Anesthesia Post Eval Post Anesthesia Eval Vitals: Last Vital Signs Temp 36.2 C L 08/25/24 15:20 Pulse 68 08/25/24 15:20 Resp 19 08/25/24 15:20 BP 117/64 08/25/24 15:20 Pulse Ox 98 08/25/24 15:20 CV Function Including HR & BP: Stable Pain Control: Satisfactory Nausea & Vomiting: Negative Mental Status: Baseline Respiratory Status: Airway Patent Hydration Status: Satisfactory Anesthesia Complications: None
[2024-08-25] MEDS: oxyCODONE 5 MG TABLET PO PRN (16:57)
[2024-08-25] MEDS: SODIUM CHLORIDE FLUSH 0.9% 10 ML SYRINGE IVP SCH (16:58)
[2024-08-25] MEDS: SODIUM CHLORIDE FLUSH 0.9% 10 ML SYRINGE IVP PRN (17:49)
--- NOTE | 2024-08-25 18:36 | PT Plan of Care ---
Medical/Surgical Past History Past History Medical History (Updated 08/25/24 @ 07:29 by Roseanne Chaparro CRNA) Osteoarthritis Sleep apnea treated with continuous positive airway pressure (CPAP) GERD (gastroesophageal reflux disease) Rheumatoid arthritis Surgical History (Updated 08/25/24 @ 07:29 by Roseanne Chaparro CRNA) H/O laminectomy Hx of bilateral breast reduction surgery H/O nasal septoplasty History of colonoscopy
[2024-08-25] MEDS: METOCLOPRAMIDE 10 MG/2 ML VIAL IVP ONE (18:53)
[2024-08-25] MEDS: ethyl alcohoL 62% SWAB AMPULE NAS SCH (20:48)
[2024-08-25] MEDS: fentaNYL 100 MCG/2 ML VIAL IVP PRN (21:00)
[2024-08-26] MEDS: LORATADINE 10 MG TABLET PO SCH (08:18)
[2024-08-26] MEDS: ASPIRIN EC 81 MG TABLET PO SCH (08:18)
--- NOTE | 2024-08-26 12:49 | PHARMACY PROGRESS NOTE ---
Best Possible Medication History Admit Date and Time: Home Medications Medication Instructions Recorded Confirmed Type acetaminophen 500 mg tablet See Rx Instructions .Route .COMPLEX 11/12/22 08/16/24 History cholecalciferol (vitamin D3) 125 See Rx Instructions .Route .COMPLEX 11/12/22 08/25/24 History mcg (5,000 unit) capsule albuterol sulfate 90 mcg/actuation 1 - 2 puff inhalation Q4HR PRN 10/05/23 08/16/24 Rx aerosol inhaler (Ventolin HFA) Shortness Of Air/Wheezing #1 ea lorazepam 1 mg tablet 1 mg PO Q8H PRN Alcohol Withdrawal 11/14/23 08/16/24 Rx #20 tabs adalimumab 40 mg/0.8 mL See Rx Instructions .Route .COMPLEX 03/11/24 08/16/24 History subcutaneous syringe kit (Humira) fexofenadine 180 mg tablet 180 mg PO QDAY PRN allergy symptoms 08/02/24 08/25/24 History losartan 50 mg-hydrochlorothiazide 1 tab PO QDAY 08/02/24 08/26/24 History 12.5 mg tablet multivitamin (Daily Multi-Vitamin 1 tab PO DAILY 08/16/24 08/25/24 History tablet) aspirin 81 mg chewable tablet 81 mg PO BID #84 tabs 08/17/24 08/17/24 Rx docusate sodium 100 mg capsule 200 mg (2 x 100 mg) PO BID #40 caps 08/17/24 08/17/24 Rx (Colace) ondansetron 4 mg disintegrating 4 mg PO Q8H PRN nausea and 08/17/24 08/17/24 Rx tablet vomiting #12 tabs oxycodone 5 mg tablet 5 mg PO Q4H PRN pain #40 tabs 08/17/24 08/17/24 Rx acetaminophen 325 mg tablet 650 mg PO Q4H PRN pain 08/26/24 08/26/24 History (Tylenol) Processed by: Nursing Medications reviewed in ED?: No Medication History completed: Yes Patient Interview: Completed Secondary Source(s): Pharmacy records and Insurance records [facility] Statement: As the person ultimately responsible for medication therapy, providers are able to order a medication from an existing home medication list in [facility] via the "Reconcile Routine" prior to Confirmation of that medication by credit support specialist. Such practice is discouraged except when the physician, in their clinical judgment, deems that a medical need exists for a medication without regard to previous use.
--- NOTE | 2024-08-26 13:45 | OT Plan of Care ---
OT Inpatient POC Diagnosis DIAGNOSIS Diagnosis: L ELSY Chief Complaint: L hip OA Onset of Chief Complaint: ORAL AND MAXILLOFACIAL SURGERY MEDICAL/SURGICAL HISTORY Medical History (Updated 08/25/24 @ 07:29 by Roseanne Chaparro CRNA) Osteoarthritis Sleep apnea treated with continuous positive airway pressure (CPAP) GERD (gastroesophageal reflux disease) Rheumatoid arthritis Surgical History (Updated 08/25/24 @ 07:29 by Roseanne Chaparro CRNA) H/O laminectomy Hx of bilateral breast reduction surgery H/O nasal septoplasty History of colonoscopy Assessment and Goals ASSESSMENT Assessment: Pt is a 64 y.o female and with [facility] for schedule L ELSY using posterior approach. Met supine in bed, A&Ox4, willing to participate with therap y. Able to recall 3/3 THP with minimal cues. Reporting 8/10 pain to L LE - Medicated prior to session. VSS on RA - Reporting dizziness limiting mobility, BP stable and symptoms resolved with sitting. RN updated. Pt performed supine to sit MOD A, sit to stand MIN A, ambulation to/from toilet MIN A using 2WW - Slowed guarded pace. Performed toileting with MIN A for tx; CGA hygiene with education on THP. CGA LB dressing/clothing management. Pt able to demonstrate use of AE with fair carryover 2/2 nausea and dizziness. Daughter present for education as well. Pt has all DME/AE for safe d/c. RN updated. Pt will benefit from cont OT services during acute stay for reinforcement of education and progression of safe mobility. -Activities of Daily Living Improve Upper Extremity Dressing to:: Modified Independent Improve Lower Extremity Dressing to:: Modified Independent Improve Grooming/Hygiene to:: Modified Independent Improve Bathing to:: Modified Independent Improve Toileting to:: Modified Independent OT Inpatient Plan -Discharge Recommendations Discharge Location: Previous Living Situation Recommended Equipment: Raised Toilet Seat, Shower/bath chair and Adaptive Self Care Devices Transport Needs at Discharge: Personal vehicle Comment: Home with 24 hr assistance form daughters
--- NOTE | 2024-08-26 14:58 | POST OP PROGRESS NOTE ---
Subjective General Procedure Date: 08/25/24 Post Op Days: 1 Procedure Performed: LEFT Total Hip Arthroplasty Ortho Surgical Progress Note Problem List Problem List: ORTHOPEDIC FOLLOW-UP NOTE PROCEDURE PERFORMED: Total Hip Arthroplasty DATE OF SURGERY: [id number] HISTORY: Moderate left hip pain require oral and IV pain medications. She is also having nausea throughout the day which is making it difficult for her to eat and ambulate. . Denies shortness of breath or chest pain. Denies fevers, chills or night sweats. No calf pain. No new numbness/parasthesias. PHYSICAL EXAM: Bilateral lower extremities with no calf tenderness, neg Chloe's sign Dressing CDI Fires quad/hamstring/EHL/FHL/GS/peroneals. SILT all distributions. 2+ DP/PT pulses. IMAGING: Radiographs of the LEFT hip on 08/25/24 demonstrate evidence of a left hip arthroplasty without hardware complications ASSESSMENT: 64 yo F s/p LEFT Total Hip Arthroplasty. DOS [id number]. She is having uncontrolled pain requiring two doses of IV pain medications in the past 12 hours. She is also having nausea and vommitting that is being treated with IV medications as well. At this point, she continues to require IV medications and will be admitted to the orthopedic team. PLAN: Admit to Ortho IV pain medications with the plan to transition to oral pain medications when able IV/Oral Zofran for nausea Continue WBAT. Encouraged to work on ROM Continue Physical Therapy Start ASA DVT prophy x6 weeks total The patient had the treatment plan explained, questions answered and seemed satisfied with the plan. There were no apparent barriers to communication. The documentation in this note may have been entered with the assistance of computer voice recognition and dictation software. Therefore, it may contain unintended errors in text, spelling, punctuation, or grammar. Davon Monet MD Orthopaedic Surgeon
[2024-08-27] MEDS: ONDANSETRON ODT 4 MG TABLET TL PRN (06:00)
[2024-08-27 08:22] VITALS: O2SAT 93
[2024-08-27] MEDS: DOCUSATE SODIUM 100 MG CAPSULE PO PRN (08:39)
--- NOTE | 2024-08-27 11:13 | Discharge Summary ---
"Discharge Summary Admit Date: 08/25/24 Discharge Date: 08/27/24 Discharging Provider: Carmencita Doty PAC Primary Care Provider: Dr. Perez Code Status: Attempt Resuscitation DIAGNOSES Admission Diagnoses: Left total hip arthroplasty for left hip osteoarthritis Uncontrolled nausea and vomiting Pain requiring IV medication management Discharge Diagnoses with Status of Each Condition: Left total hip arthroplasty for left hip osteoarthritis - stable Uncontrolled nausea and vomiting - improved Pain requiring IV medication management - improved HPI History of Present Illness: 64-year-old female with a past medical history of hypertension presented to [facility] on 08/25/2024 for elective left total hip arthroplasty for management of left hip osteoarthritis. Prior to surgery she attended a total joint boot camp with orthopedic nurse. CONSULTS | PROCEDURES Procedures: Left total hip [id number]/4/2024. Left hip x-rays on 08/25/2024 showing expected postoperative changes of left total hip arthroplasty HOSPITAL COURSE Hospital Course: She underwent a left total hip arthroplasty with no known immediate complications on 08/25/24. On postoperative day 0 patient was found to have significant nausea and vomiting requiring IV Zofran. She had several bouts of nausea and emesis after eating and after oral oxycodone. Pain control with oral Tylenol and oxycodone was insufficient requiring IV fentanyl for management of pain. On post operative day 1 she continued to experience severe nausea and vomiting despite use of IV zofran. She again required IV fentanyl for pain management despite use of oral analgesics. She was able to ambulate with physical therapy up two steps but reportedly had 4 steps up to her home. Due to use of IV narcotics and zofran she was placed in observation status overnight. On post operative day 2 her pain and nausea were well controlled and she was discharged home in accordance with pre-operative plan. ALLERGIES Allergies Allergy/AdvReac Type Severity Reaction Status Date / Time Latex, Natural Rubber Allergy Rash Verified 08/25/24 07:05 MEDICATIONS Ambulatory Orders Medication Instructions Recorded Confirmed cholecalciferol (vitamin D3) 125 See Rx Instructions .Route .COMPLEX 11/12/22 08/25/24 mcg (5,000 unit) capsule albuterol sulfate 90 mcg/actuation 1 - 2 puff inhalation Q4HR PRN 10/05/23 08/16/24 aerosol inhaler (Ventolin HFA) Shortness Of Air/Wheezing #1 ea lorazepam 1 mg tablet 1 mg PO Q8H PRN Alcohol Withdrawal 11/14/23 08/16/24 #20 tabs adalimumab 40 mg/0.8 mL See Rx Instructions .Route .COMPLEX 03/11/24 08/16/24 subcutaneous syringe kit (Humira) fexofenadine 180 mg tablet 180 mg PO QDAY PRN allergy symptoms 08/02/24 08/25/24 losartan 50 mg-hydrochlorothiazide 1 tab PO QDAY 08/02/24 08/26/24 12.5 mg tablet multivitamin (Daily Multi-Vitamin 1 tab PO DAILY 08/16/24 08/25/24 tablet) aspirin 81 mg chewable tablet 81 mg PO BID #84 tabs 08/17/24 08/17/24 docusate sodium 100 mg capsule 200 mg (2 x 100 mg) PO BID #40 caps 08/17/24 08/17/24 (Colace) ondansetron 4 mg disintegrating 4 mg PO Q8H PRN nausea and 08/17/24 08/17/24 tablet vomiting #12 tabs oxycodone 5 mg tablet 5 mg PO Q4H PRN pain #40 tabs 08/17/24 08/17/24 acetaminophen 325 mg tablet 650 mg PO Q4H PRN pain 08/26/24 08/26/24 (Tylenol) PHYSICAL EXAM AT DISCHARGE General Appearance: positive No acute distress Physical Exam Other/Comments: well developed, well nourished, 64 year old female, no acute distress, appropriate respiratory effort Dressing is dry and intact without drainage or hematoma about the left hip Neurovascular intact to left lower extremity DIAGNOSTIC IMAGING Diagnostic Imaging Results: Final report reviewed FOLLOW UP Follow Up: [facility] within 2 weeks of surgery - Dr Monet TIME SPENT Time Spent in Discharge (Minutes): 30 Discharge Plan Discharge Patient Disposition: 01 Home, Self Care Condition: Stable Medically Cleared Date:: 08/27/24 Prescriptions: Continued cholecalciferol (vitamin D3) 5,000 UNIT capsule See Rx Instructions .Route .COMPLEX Rx Instructions: QD albuterol sulfate [Ventolin HFA] 200 PUFFS/18 GM HFA aerosol inhaler 1 - 2 puff inhalation Q4HR PRN (Reason: Shortness Of Air/Wheezing) Qty: 1 0RF lorazepam 1 MG tablet 1 mg PO Q8H PRN (Reason: Alcohol Withdrawal) Qty: 20 0RF multivitamin [Daily Multi-Vitamin] Tablet 1 tab PO DAILY acetaminophen [Tylenol] 325 mg tablet 650 mg PO Q4H PRN (Reason: pain) fexofenadine 180 mg tablet 180 mg PO QDAY PRN (Reason: allergy symptoms) losartan-hydrochlorothiazide 50-12.5 mg tablet 1 tab PO QDAY aspirin 81 mg tablet,chewable 81 mg PO BID Qty: 84 0RF docusate sodium [Colace] 100 mg capsule 200 mg PO BID Qty: 40 0RF ondansetron 4 mg tablet,disintegrating 4 mg PO Q8H PRN (Reason: nausea and vomiting) Qty: 12 0RF oxycodone 5 mg tablet 5 mg PO Q4H PRN (Reason: pain) Qty: 40 0RF Held Humira 40 MG/0.8 ML syringe kit See Rx Instructions .Route .COMPLEX Hold Instructions: Resume on 09/08/24. Hold for 2 weeks after surgery then resume this medication as regularly scheduled Rx Instructions: Q14D Discontinued acetaminophen 500 MG tablet See Rx Instructions .Route .COMPLEX Rx Instructions: PRN Activity Restrictions/Additional Instructions: You had a Left Total Hip Arthroplasty by Dr. Monet on 08/25/24 at [facility]. You are weight bearing as tolerated to the affected extremity with a front wheeled walker at all times until follow up with your orthopedic surgeon. We encourage active movement of the toes every hour as tolerated. You will follow up at [facility] within 2 weeks of discharge. If you have any problems, please call our office at [phone] between the hours of 8am-5pm on Friday through Friday. If it is after these hours and you have a problem, please seek care in the Emergency Department. You have [address] which should remain in place until your follow-up visit. You can take a shower if needed with this dressing in place. Please call the office if the dressing falls off or if you notice fever, chills, excessive bleeding or drainage from the surgical wound. If it is after normal business hours and you notice chest pain or difficulty breathing, please seek care in the Emergency Department as this can be a sign of a blood clot in your lungs. POST OPERATIVE MEDICATIONS: Take three pills of 325 mg Tylenol (Acetaminophen) every 8 hours regardless of pain in a scheduled manner. Do not exceed 3000 mg of Tylenol in a 24-hour period due to risk of liver injury. Take one pill of 5 mg oxycodone by mouth as needed for break through pain stronger than 7 out of 10 on a pain scale. Take this for severe pain 1 hour after taking the scheduled Tylenol and ibuprofen. Do not exceed 4 tablets in a 24-hour period. Oxycodone can cause nausea and vomiting. If you notice nausea, stop taking the medication or take a smaller dose and call the orthopedic office for further guidance. Take 200 mg of Colace by mouth every 12 hours for constipation. Narcotic medications such as the oxycodone may increase your risk of constipation after surgery. Take 4mg of Zofran by mouth every 6 hours as needed for uncontrolled nausea and vomiting. If you have persistent nausea and vomiting please call our office during normal business hours. Otherwise, seek care in the emergency department. Take Aspirin 81 mg twice daily or every 12 hours every day for 6 weeks after surgery. This medication helps prevent blood clots. Take this medication regardless of pain. Resume your normal home medications when you return home with the exception of Humira. This medication should be avoided for 2 weeks after surgery. Then you can resume this medication. Diet: Regular Health Concerns: Left total hip arthroplasty Uncontrolled nausea and vomiting Care Plan Goals: Return to independent safe ambulation Assessment: I discussed the above the with patient and her daughter who verbalize understanding and agreement. Written instructions were provided as a reminder. Plan of Treatment: Left total hip arthroplasty Physical therapy and occupational therapy Print Language: Citizen Of [place] Patient Instructions: Surgery Anesthesia After Follow-up Care: Davon Monet MD [Provider Admit Priv/Credential] - LEONARD PEREZ DO [Primary Care Provider] -"
== END 2024-08-27 13:00 | disposition home or self-care (01) ==
LOC: SDS 06:08 → MS2 06:08
PROVIDERS: ADMIT Orthopaedic Surgery; ATTEND Orthopaedic Surgery